=== PATIENT | female | born 1950 | race Caucasian/White ===

== ENCOUNTER 2021-08-06 11:37 | Inpatient (IN) | payer MEDICARE ==
[~2021-08-06] VITALS: Ht 170.2 cm; Wt 49.9 kg
[2021-08-06 13:20] LABS: BASOPHILS ABSOLUTE AUTO 0.05 K/mm3 (0.00-0.23); BASOPHILS PERCENT AUTO 0 % (0-2); EOSINOPHILS ABSOLUTE AUTO 0.02 K/mm3 (0.00-0.68); EOSINOPHILS PERCENT AUTO 0 % (0-6); Hematocrit 45.6 % (33.0-51.0); Hemoglobin 15.1 g/dL (11.5-16.0); IMMATURE GRAN ABSOLUTE AUTO 0.06 K/mm3 (0.00-0.10); IMMATURE GRAN PERCENT AUTO 0 % (0-1); LYMPHOCYTES ABSOLUTE AUTO 1.11 K/mm3 (0.84-5.20); LYMPHOCYTES PERCENT AUTO 8 % (21-46); MONOCYTES ABSOLUTE AUTO 1.01 K/mm3 (0.16-1.47); MONOCYTES PERCENT AUTO 7 % (4-13); Mean Corpuscular HGB 32.8 pg (26.0-34.0); Mean Corpuscular HGB Conc 33.1 g/dL (31.5-36.5); Mean Corpuscular Volume 99 fL (80-100); Mean Platelet Volume 9.6 fL (9.1-12.4); NEUTROPHILS ABSOLUTE AUTO 11.99 K/mm3 (1.96-9.15); NEUTROPHILS PERCENT AUTO 84 % (41-73); Platelet Count 313 K/mm3 (150-400); RDW Coefficient Variation 12.1 % (11.7-14.2); RDW Standard Deviation 43.7 fL (35.1-46.3); Red Blood Cell Count 4.61 M/mm3 (3.80-5.20); White Blood Cell Count 14.24 K/mm3 (4.00-11.30)
[2021-08-06 13:47] LABS: Alanine Aminotransfer (ALT/SGP 26 U/L (12-78); Albumin, Blood 3.2 g/dL (3.4-5.0); Albumin/Globulin Ratio 0.6 (0.8-1.8); Alk Phos 170 U/L (50-136); Anion Gap 7 mmol/L (6-16); Aspartate Aminotrans (AST/SGOT 25 U/L (12-37); Bilirubin, Total 0.4 mg/dL (0.1-1.0); Blood Urea Nitrogen 15 mg/dL (8-24); Bun/Creatinine Ratio 23.9 (12.0-20.0); CO2, Blood 28 mmol/L (21-32); Calcium, Blood 9.8 mg/dL (8.5-10.1); Chloride, Blood 101 mmol/L (98-108); Creatinine, Blood 0.63 mg/dL (0.40-1.00); Glomerular Filtration Rate >60 (60-); Glucose, Blood 112 mg/dL (70-99); Potassium, Blood 3.9 mmol/L (3.5-5.5); Sodium, Blood 136 mmol/L (136-145); Total Protein, Blood 8.2 g/dL (6.4-8.2)
[2021-08-07 05:13] LABS: BASOPHILS ABSOLUTE AUTO 0.04 K/mm3 (0.00-0.23); BASOPHILS PERCENT AUTO 0 % (0-2); EOSINOPHILS ABSOLUTE AUTO 0.01 K/mm3 (0.00-0.68); EOSINOPHILS PERCENT AUTO 0 % (0-6); Hematocrit 39.4 % (33.0-51.0); IMMATURE GRAN ABSOLUTE AUTO 0.06 K/mm3 (0.00-0.10); IMMATURE GRAN PERCENT AUTO 0 % (0-1); LYMPHOCYTES ABSOLUTE AUTO 1.23 K/mm3 (0.84-5.20); LYMPHOCYTES PERCENT AUTO 9 % (21-46); MONOCYTES ABSOLUTE AUTO 0.78 K/mm3 (0.16-1.47); MONOCYTES PERCENT AUTO 6 % (4-13); Mean Corpuscular HGB 32.5 pg (26.0-34.0); Mean Corpuscular Volume 99 fL (80-100); Mean Platelet Volume 9.5 fL (9.1-12.4); NEUTROPHILS ABSOLUTE AUTO 11.99 K/mm3 (1.96-9.15); NEUTROPHILS PERCENT AUTO 85 % (41-73); Platelet Count 263 K/mm3 (150-400); RDW Coefficient Variation 11.9 % (11.7-14.2); RDW Standard Deviation 43.3 fL (35.1-46.3); White Blood Cell Count 14.11 K/mm3 (4.00-11.30)
--- NOTE | 2021-08-07 05:38 | NUR ---
ADMISSION SUMMARY RECEIVED FROM ED ON STRETCHER, A&OX4. PT IS ON RA. STAND BY ASSIST. PT HAS A SWELLING IN NECK. IV ANTIBIOTICS ADMINISTERED PER EMAR. PT C/O BACK PAIN, PRN PAIN MED ADMINISTERED X2 WITH GOOD EFFECTS. PT HAD ELEVATED BP, APRESOLINE 10MG IV ADMINISTERED WITH GOOD EFFECTS. ADLS PROVIDED. SAFETY MEASURES IN PLACE. WILL CONTINUE TO MONITOR.
[2021-08-07 05:41] LABS: Alanine Aminotransfer (ALT/SGP 24 U/L (12-78); Albumin, Blood 2.6 g/dL (3.4-5.0); Albumin/Globulin Ratio 0.6 (0.8-1.8); Alk Phos 151 U/L (50-136); Anion Gap 9 mmol/L (6-16); Aspartate Aminotrans (AST/SGOT 23 U/L (12-37); Bilirubin, Total 0.3 mg/dL (0.1-1.0); Blood Urea Nitrogen 16 mg/dL (8-24); Bun/Creatinine Ratio 28.1 (12.0-20.0); CO2, Blood 26 mmol/L (21-32); Calcium, Blood 8.9 mg/dL (8.5-10.1); Chloride, Blood 102 mmol/L (98-108); Creatinine, Blood 0.57 mg/dL (0.40-1.00); Globulin, Blood 4.2 g/dL (2.2-4.0); Glomerular Filtration Rate >60 (60-); Glucose, Blood 103 mg/dL (70-99); Potassium, Blood 3.7 mmol/L (3.5-5.5); Sodium, Blood 137 mmol/L (136-145); Total Protein, Blood 6.8 g/dL (6.4-8.2)
--- NOTE | 2021-08-07 18:33 | NUR ---
Alert and oriented x 3, c/o submandibular pain 8/10 , neck pain and back pain all 8/10, oxycodone was given and was effective. Swelling noted left submandibular jaw and also complained of difficulty swallowing.Pain was managed with oxycodone and tylenol . C/O Migraine , tylenol and advil was given and it was effective. Continue on Unasyn IV for left submandibular abscess. One person assist with ADLS. Left submandibular was redrained this afternoon, patient tolerated it , fentayl 100 mcg IV was given for pain management and it was effective. Continue to monitor.
--- NOTE | 2021-08-08 04:39 | NUR ---
END OF SHIFT SUMMARY: Pt A&Ox4. No acute events overnight. Some pain in the jaw area, medicated per eMAR. Pt is pleasant and follows direction. Able to voice needs, call light within reach. Pt independednt in room. Bed in lowest position.
[2021-08-08 04:43] LABS: BASOPHILS ABSOLUTE AUTO 0.01 K/mm3 (0.00-0.23); BASOPHILS PERCENT AUTO 0 % (0-2); EOSINOPHILS PERCENT AUTO 0 % (0-6); Hemoglobin 12.9 g/dL (11.5-16.0); IMMATURE GRAN ABSOLUTE AUTO 0.08 K/mm3 (0.00-0.10); IMMATURE GRAN PERCENT AUTO 1 % (0-1); LYMPHOCYTES ABSOLUTE AUTO 0.63 K/mm3 (0.84-5.20); LYMPHOCYTES PERCENT AUTO 6 % (21-46); MONOCYTES ABSOLUTE AUTO 0.21 K/mm3 (0.16-1.47); MONOCYTES PERCENT AUTO 2 % (4-13); Mean Corpuscular HGB 33.1 pg (26.0-34.0); Mean Corpuscular HGB Conc 33.9 g/dL (31.5-36.5); Mean Corpuscular Volume 97 fL (80-100); Mean Platelet Volume 9.6 fL (9.1-12.4); NEUTROPHILS ABSOLUTE AUTO 10.25 K/mm3 (1.96-9.15); NEUTROPHILS PERCENT AUTO 92 % (41-73); Platelet Count 264 K/mm3 (150-400); RDW Coefficient Variation 12.2 % (11.7-14.2); RDW Standard Deviation 43.6 fL (35.1-46.3); White Blood Cell Count 11.18 K/mm3 (4.00-11.30)
--- NOTE | 2021-08-08 18:33 | NUR ---
Alert and oriented x3 c/o left jaw /submandibular pain 06/29 , pain was managed with dilaudid,tylenol and norco,it was effective. Left jaw was drained this morning by Dr Guzman, pateint tolerated and continue to express pain. On regular diet. Continue on Unasyn , no adverse effects noted. Call light within reach and bed in low position. continue to monitor .
[2021-08-09 05:06] LABS: BASOPHILS ABSOLUTE AUTO 0.01 K/mm3 (0.00-0.23); BASOPHILS PERCENT AUTO 0 % (0-2); EOSINOPHILS PERCENT AUTO 0 % (0-6); Hemoglobin 12.6 g/dL (11.5-16.0); IMMATURE GRAN ABSOLUTE AUTO 0.12 K/mm3 (0.00-0.10); IMMATURE GRAN PERCENT AUTO 1 % (0-1); LYMPHOCYTES ABSOLUTE AUTO 0.81 K/mm3 (0.84-5.20); LYMPHOCYTES PERCENT AUTO 7 % (21-46); MONOCYTES ABSOLUTE AUTO 0.54 K/mm3 (0.16-1.47); MONOCYTES PERCENT AUTO 5 % (4-13); Mean Corpuscular HGB 32.6 pg (26.0-34.0); Mean Corpuscular HGB Conc 33.2 g/dL (31.5-36.5); Mean Corpuscular Volume 98 fL (80-100); Mean Platelet Volume 9.6 fL (9.1-12.4); NEUTROPHILS ABSOLUTE AUTO 10.57 K/mm3 (1.96-9.15); NEUTROPHILS PERCENT AUTO 88 % (41-73); Platelet Count 279 K/mm3 (150-400); RDW Coefficient Variation 12.1 % (11.7-14.2); RDW Standard Deviation 43.7 fL (35.1-46.3); Red Blood Cell Count 3.87 M/mm3 (3.80-5.20); White Blood Cell Count 12.05 K/mm3 (4.00-11.30)
[2021-08-09 05:39] LABS: Anion Gap 5 mmol/L (6-16); Blood Urea Nitrogen 36 mg/dL (8-24); Bun/Creatinine Ratio 57.8 (12.0-20.0); CO2, Blood 26 mmol/L (21-32); Calcium, Blood 9.1 mg/dL (8.5-10.1); Chloride, Blood 108 mmol/L (98-108); Creatinine, Blood 0.62 mg/dL (0.40-1.00); Glomerular Filtration Rate >60 (60-); Glucose, Blood 166 mg/dL (70-99); Potassium, Blood 3.9 mmol/L (3.5-5.5); Sodium, Blood 139 mmol/L (136-145)
--- NOTE | 2021-08-09 06:06 | NUR ---
SHIFT SUMMARY PATIENT ALERT AND ORIENTED. MEDICATED PER EMAR FOR PAIN. NO COMPLAINTS OF SHORTNESS OF BREATH. NO ACUTE ISSUES NOTED OVERNIGHT. CALL LIGHT WITHIN REACH. REPORT GIVEN TO ONCOMING RN.
--- NOTE | 2021-08-09 18:00 | NUR ---
Alert and oriented x3. c/o left jaw pain and pain was managed with dilaudid 1 mg , tylenol 1000 mg , it was effective.No respiratory distress noted. Vital signs are stable. Ambulate to bathroom with SBA. No changes in LOC. call light within reach. Continue to monitor.
[2021-08-10 05:21] LABS: BASOPHILS ABSOLUTE AUTO 0.03 K/mm3 (0.00-0.23); BASOPHILS PERCENT AUTO 0 % (0-2); EOSINOPHILS PERCENT AUTO 0 % (0-6); Hematocrit 42.4 % (33.0-51.0); Hemoglobin 14.2 g/dL (11.5-16.0); IMMATURE GRAN ABSOLUTE AUTO 0.23 K/mm3 (0.00-0.10); IMMATURE GRAN PERCENT AUTO 2 % (0-1); LYMPHOCYTES ABSOLUTE AUTO 1.26 K/mm3 (0.84-5.20); LYMPHOCYTES PERCENT AUTO 10 % (21-46); MONOCYTES ABSOLUTE AUTO 0.53 K/mm3 (0.16-1.47); MONOCYTES PERCENT AUTO 4 % (4-13); Mean Corpuscular HGB 32.7 pg (26.0-34.0); Mean Corpuscular HGB Conc 33.5 g/dL (31.5-36.5); Mean Corpuscular Volume 98 fL (80-100); Mean Platelet Volume 9.5 fL (9.1-12.4); NEUTROPHILS ABSOLUTE AUTO 10.63 K/mm3 (1.96-9.15); NEUTROPHILS PERCENT AUTO 84 % (41-73); Platelet Count 347 K/mm3 (150-400); RDW Coefficient Variation 11.9 % (11.7-14.2); Red Blood Cell Count 4.34 M/mm3 (3.80-5.20); White Blood Cell Count 12.68 K/mm3 (4.00-11.30)
[2021-08-10 05:50] LABS: Anion Gap 5 mmol/L (6-16); Blood Urea Nitrogen 34 mg/dL (8-24); Bun/Creatinine Ratio 59.5 (12.0-20.0); CO2, Blood 28 mmol/L (21-32); Calcium, Blood 9.4 mg/dL (8.5-10.1); Chloride, Blood 107 mmol/L (98-108); Creatinine, Blood 0.57 mg/dL (0.40-1.00); Glomerular Filtration Rate >60 (60-); Glucose, Blood 127 mg/dL (70-99); Potassium, Blood 3.8 mmol/L (3.5-5.5); Sodium, Blood 140 mmol/L (136-145)
--- NOTE | 2021-08-10 11:23 | NUR ---
Patient tells me that she is the DC process. Son, Macario is bedside. I provide a calming presence and a blessing. Patient responds ell and voices appreciation for the visit.
[2021-08-10] MEDS ORDERED: ALBU90OI INH (13:05)
[2021-08-10] MEDS ORDERED: CEFD300 PO (13:06)
[2021-08-10] MEDS ORDERED: GABA300 PO (13:06)
[2021-08-10] MEDS ORDERED: Norco 10-325 T1 EACH PO (13:06)
[2021-08-10] MEDS ORDERED: PANT20 PO (13:07)
[2021-08-10] MEDS ORDERED: ZOLP10 PO (13:08)
[2021-08-10] MEDS ORDERED: Imitrex100 MG PO (13:08)
--- NOTE | 2021-08-10 14:23 | NUR ---
Alert and oriented x3 , continue with to manage pain with Dilaudi , tylenol and norco, it was effective. vital signs are stable. Left jaw swelling has significantly improved. On regular diet. Ambulate to bahroom independently . Continue on ABO therapy for left jaw swelling, no adverse effects noted. Patient was discharged home at 1.30 pm and Discharged instruction was given , patient demonstrated understanding. she left with her son in a stable condition.
== END 2021-08-10 13:34 | disposition home or self-care (01) | DRG 159 ==
LOC: ER 11:37 → MEDS 16:54
PROVIDERS: Emergency Medicine; Family Medicine; ADMIT Hospitalist
PROC: 0J913ZZ Drainage of Face Subcutaneous Tissue and Fascia, Percutaneous Approach (ICD-10-PCS; principal; 2021-08-06)
DX: K12.2 Cellulitis and abscess of mouth (principal); K11.23 Chronic sialoadenitis; F41.9 Anxiety disorder, unspecified; E78.5 Hyperlipidemia, unspecified; J44.9 Chronic obstructive pulmonary disease, unspecified; G47.00 Insomnia, unspecified; Z90.711 Acquired absence of uterus with remaining cervical stump; Z90.49 Acquired absence of other specified parts of digestive tract; Z66 Do not resuscitate; K21.9 Gastro-esophageal reflux disease without esophagitis; G89.29 Other chronic pain; Z86.73 Personal history of transient ischemic attack (TIA), and cerebral infarction without residual deficits; M81.0 Age-related osteoporosis without current pathological fracture; Z79.899 Other long term (current) drug therapy; G43.909 Migraine, unspecified, not intractable, without status migrainosus
CPT/HCPCS: 36415; 70491; 80048; 80053; 85025; 87070; 87075; 87077; 87186; 87205; 96365; 96366; 96372; 96375; 96376; 99284-25; A9270; C9113; G0378; J0295; J1100; J1170; J1885; J3010; J3030; J7050; J7512; Q9967

== ENCOUNTER 2022-07-29 08:24 | Day surgery (SDC) | payer MEDICARE, OTHER ==
[~2022-07-29] VITALS: Ht 170.2 cm; Wt 54.7 kg
[~2022-07-29 08:24] MED LIST: ALBU90OI INH; AMOX500 PO; CEFD300 PO; GABA300 PO; Imitrex100 MG PO; Norco 10-325 T1 EACH PO; PANT20 PO; PERCOCET 10-321 EA10 PO; ZOLP10 PO
[2022-07-29] MEDS ORDERED: Carisoprodol350 MG (09:02)
--- NOTE | 2022-07-29 10:04 | NUR ---
07/29/22 1004 Liam Enriquez LIDOCAINE 2% 1:100,000 DILUTED AND VERIFY BY RN PER ORDER WITH NACL 1:1 TO MAKE LIDO 1% 1:200,000 INJECTED AT OPSITE BY DR. PANDEY 4 ML INJECTED.
--- NOTE | 2022-07-29 14:47 | NUR ---
07/29/22 6476 Gandhi Kumar PATIENT HAD PROBLEMS MAINTAINING O2 SATURATION IN PACU. SHE WAS PLACED ON O2 IN PACU AND SUPPLEMENTAL O2 IN STEP DOWN. O2 SATS WERE SUSTAIN ING 80'S WHEN ON ROOM AIR. PATIENT REPORTED 9/10 PAIN AND ASKED FOR IV PAIN MEDICATION. PAIN MEDICATION COULD NOT BE ADMINISTERED, DUE TO PATIENT'S LOW 02 SATS, PER DR. HUBER. SHE WAS GIVEN AN INCENTIVE SPIROMOMETER TO USE. SHE DEMONSTRATED ABILITY TO USE BUT WAS RELUCTANT TO USE IT WHEN REQUESTED. SON WAS IN PT ROOM WHEN SHE FIRST CAME INTO SDU. HE WAS THERE WHEN REQUEST FOR I.S.- HE WITNESSED HER NON-COMPLIANCE TO DEVICE WELL. DUONEB WAS ADMINISTERED ALONG WITH SUPPLEMENTAL 02, PER DR. HUBER'S ORDERS. PATIENT TRIALS OFF O2, CONTINUED TO DESATURATION INTO THE 80'S WHEN RETURNED TO ROOM AIR. DR. THOMAS LATER EXAMINED THE PATIENT AND AGREED TO IV FENTANYL ADMINISTRATION, WHILE PATIENT WAS ON SUPPLEMENTAL O2. DR. THOMAS HAD OFFERED TO HAVE PT ADMITTED TO THE HOSPITAL FOR CARE/TREATMENT, HOWEVER, PT REFUSED. SON CONCERED OF PT PAIN. PT HAD ADMITTED THAT SHE HAS CHRONIC PAIN AND IS TAKING PERCOCET QID PRN. SINCE PT REFUSED ADMITTANCE TO HOSPITAL, DR. THOMAS SET UP TO HAVE O2 FOR HOME USE PRIOR TO DISCHARGE. PATIENT RECIEVED (3) 25MCG DOSES OF IV FENTANYL WHILE WAITING FOR [facility] TO ARRIVE WITH HOME O2 EQUIPMENT. PATIENT REPORTED HER PAIN TOLERABLE FOLLOWING INITIAL THREE DOSES OF FENTANYL. SHE WAS GIVEN A FOURTH 25MCG DOSE OF FENTANYL PRIOR TO DISCHARGE AND AGAIN REPORTED HER PAIN TOLERABLE FOLLOWING THIS DOSE. O2 WAS SWITCHED FROM FACE TENT TO NASAL CANUALA FOLLOWING EXAMINATION BY DR. THOMAS AND FREQUENTLY TITRATED TO MAINTAIN O2 SATURATION ABOVE 92%. PATIENT DISCHARGED ON 3L O2. SON WAS IN ROOM DURING DISCHARGE INSTRUCTIONS. HE HAD MANY QUESTIONS THAT WERE ANSWERED TO HIS SATISFACTION. HE HAD QUESTIONS FOR [facility] RETAIL LOAN ORIGINATOR WELL AND THOSE QUESTIONS WERE ANSWERED TO HIS SATISFACTION. [facility] STATES THAT THEY WOULD DELIVER AN O2 CONCENTRATOR TO THEIR HOME TODAY. ON DISCHARGE, PT AND SON STATED THAT THEY WERE VERY PLEASED WITH THEIR CARE. SON WAS VERY APPRCIATIVE OF THE CARE HIS MOM RECEIVED. SEVERAL TIMES PT AND SON REMINDED OF THE DANGERS OF SMOKING WHILE ON OXYGEN.
== END 2022-07-29 14:05 | disposition home or self-care (01) ==
LOC: ORSCSDS 08:24
PROVIDERS: Otolaryngology
PROC: 0JB50ZX Excision of Left Neck Subcutaneous Tissue and Fascia, Open Approach, Diagnostic (ICD-10-PCS; principal; 2022-07-29 09:30)
DX: A42.9 Actinomycosis, unspecified (principal); Z79.899 Other long term (current) drug therapy; Z86.73 Personal history of transient ischemic attack (TIA), and cerebral infarction without residual deficits; J44.9 Chronic obstructive pulmonary disease, unspecified; E03.9 Hypothyroidism, unspecified; F17.210 Nicotine dependence, cigarettes, uncomplicated
CPT/HCPCS: 87071; 87075; 87077; 87186; 87205; 88305; J1100; J1885; J2250; J2370; J2405; J2704; J2795; J3010; J7030; J7120

== ENCOUNTER 2022-09-09 01:56 | Day surgery (SDC) | payer MEDICARE, OTHER ==
[~2022-09-09 01:56] MED LIST changes: +Carisoprodol350 MG
[2022-09-10] MEDS ORDERED: Simvastatin20 MG PO (10:37)
[2022-09-10] MEDS ORDERED: NARCAN4 M1 (11:51)
== END 2022-09-09 23:33 | disposition home or self-care (01) ==
LOC: WOUND 01:56
DX: L98.499 Non-pressure chronic ulcer of skin of other sites with unspecified severity (principal); K12.2 Cellulitis and abscess of mouth; G89.4 Chronic pain syndrome; K08.109 Complete loss of teeth, unspecified cause, unspecified class; F17.208 Nicotine dependence, unspecified, with other nicotine-induced disorders; J44.9 Chronic obstructive pulmonary disease, unspecified; M06.9 Rheumatoid arthritis, unspecified
CPT/HCPCS: 99406; A9270; G0463

== ENCOUNTER 2023-09-10 18:26 | Emergency (ER) | payer MEDICARE, OTHER ==
[~2023-09-10] VITALS: Ht 170.2 cm; Wt 54.4 kg
[~2023-09-10 18:26] MED LIST changes: +NARCAN4 M1; +Simvastatin20 MG PO
[2023-09-10 18:36] VITALS: BP 100/66
== END 2023-09-10 21:00 | disposition left against medical advice (07) ==
LOC: ER 18:26
DX: Z53.21 Procedure and treatment not carried out due to patient leaving prior to being seen by health care provider (principal)
CPT/HCPCS: 70450; 72125

== ENCOUNTER → 2023-11-30 | Outpatient (CLI) | payer MEDICARE, OTHER | LOC: LAB SHORT 14:00 → LAB 14:00 | DX: R84.5 Abnormal microbiological findings in specimens from respiratory organs and thorax (principal); R09.3 Abnormal sputum | CPT/HCPCS: 87070; 87205 ==

== ENCOUNTER → 2024-12-21 | Outpatient (CLI) | payer MEDICARE, OTHER ==
[2024-12-21 11:41] LABS: BASOPHILS ABSOLUTE AUTO 0.03 K/mm3 (0.00-0.23); BASOPHILS PERCENT AUTO 0 % (0-2); EOSINOPHILS PERCENT AUTO 0 % (0-6); Hematocrit 42.9 % (33.0-51.0); Hemoglobin 14.2 g/dL (11.5-16.0); IMMATURE GRAN PERCENT AUTO 2 % (0-1); LYMPHOCYTES ABSOLUTE AUTO 0.56 K/mm3 (0.84-5.20); LYMPHOCYTES PERCENT AUTO 5 % (21-46); MONOCYTES ABSOLUTE AUTO 0.36 K/mm3 (0.16-1.47); MONOCYTES PERCENT AUTO 3 % (4-13); Mean Corpuscular HGB 33.3 pg (26.0-34.0); Mean Corpuscular HGB Conc 33.1 g/dL (31.5-36.5); Mean Corpuscular Volume 101 fL (80-100); Mean Platelet Volume 9.1 fL (9.1-12.4); NEUTROPHILS ABSOLUTE AUTO 10.87 K/mm3 (1.96-9.15); NEUTROPHILS PERCENT AUTO 90 % (41-73); Platelet Count 208 K/mm3 (150-400); RDW Coefficient Variation 12.9 % (11.7-14.2); Red Blood Cell Count 4.27 M/mm3 (3.80-5.20); White Blood Cell Count 12.02 K/mm3 (4.00-11.30)
[2024-12-21 11:54] LABS: Albumin, Blood 3.8 g/dL (3.4-5.0); Bilirubin, Total 0.4 mg/dL (0.1-1.0); Bun/Creatinine Ratio 29.2 (12.0-20.0); Calcium, Blood 8.9 mg/dL (8.5-10.1); Creatinine, Blood 0.72 mg/dL (0.40-1.00); Globulin, Blood 3.9 g/dL (2.2-4.0); Potassium, Blood 4.4 mmol/L (3.5-5.5); Total Protein, Blood 7.7 g/dL (6.4-8.2)
== END ==
LOC: LAB SHORT 11:35 → LAB 11:35
PROVIDERS: Family Medicine
DX: R19.7 Diarrhea, unspecified (principal); R11.2 Nausea with vomiting, unspecified
CPT/HCPCS: 80053; 85025

== ENCOUNTER → 2025-02-03 | Outpatient (CLI) | payer MEDICARE, OTHER ==
[2025-02-10 18:53] LABS: 6-ACETYLMORPHINE, URN, QUANT <10 ng/mL; CODEINE, URN, QUANT <20 ng/mL; HYDROCODONE, URN, QUANT <20 ng/mL; HYDROMORPHONE, URN, QUANT <20 ng/mL; MORPHINE, URN, QUANT <20 ng/mL; NORHYDROCODONE, URN, QUANT <20 ng/mL; NOROXYCODONE, URN, QUANT >4000 ng/mL; NOROXYMORPHONE, URN, QUANT 581 ng/mL; OXYCODONE, URN, QUANT 2889 ng/mL; OXYMORPHONE, URN, QUANT 38 ng/mL
== END | disposition home or self-care (01) ==
LOC: LAB 16:45 → LAB SHORT 16:45
PROVIDERS: Physician Assistant
DX: Z79.891 Long term (current) use of opiate analgesic (principal)
CPT/HCPCS: G0480

== ENCOUNTER 2025-06-22 10:11 | Inpatient (IN) | payer MEDICARE, OTHER ==
[~2025-06-22] VITALS: Ht 157.5 cm; Wt 56.0 kg
[~2025-06-22 10:11] MED LIST changes: -Carisoprodol350 MG; +Carisoprodol350 MG PO
[2025-06-22] MEDS ORDERED: Ipratropium/Albuterol SulF 2.5-0.5MG/3 ML Amp INH ONE (10:20)
[2025-06-22 10:24] LABS: pH Blood Venous 7.38 (7.34-7.37)
[2025-06-22 10:34] LABS: BASOPHILS ABSOLUTE AUTO 0.06 K/mm3 (0.00-0.23); BASOPHILS PERCENT AUTO 1 % (0-2); EOSINOPHILS ABSOLUTE AUTO 0.17 K/mm3 (0.00-0.68); EOSINOPHILS PERCENT AUTO 2 % (0-6); Hematocrit 41.6 % (33.0-51.0); Hemoglobin 13.5 g/dL (11.5-16.0); IMMATURE GRAN ABSOLUTE AUTO 0.03 K/mm3 (0.00-0.10); IMMATURE GRAN PERCENT AUTO 0 % (0-1); LYMPHOCYTES ABSOLUTE AUTO 1.53 K/mm3 (0.84-5.20); LYMPHOCYTES PERCENT AUTO 18 % (21-46); MONOCYTES ABSOLUTE AUTO 0.81 K/mm3 (0.16-1.47); MONOCYTES PERCENT AUTO 9 % (4-13); Mean Corpuscular HGB Conc 32.5 g/dL (31.5-36.5); Mean Corpuscular Volume 104 fL (80-100); NEUTROPHILS ABSOLUTE AUTO 6.10 K/mm3 (1.96-9.15); NEUTROPHILS PERCENT AUTO 70 % (41-73); NRBC ABSOLUTE 0.00 K/mm3 (0.00-0.02); NRBC Auto 0.0 /100 WBC (0.0-0.2); Platelet Count 206 K/mm3 (150-400); RDW Coefficient Variation 12.3 % (11.7-14.2); RDW Standard Deviation 47.2 fL (35.1-46.3)
[2025-06-22 10:55] LABS: Alanine Aminotransfer (ALT/SGP 42.0 U/L (12-78); Albumin, Blood 3.6 g/dL (3.4-5.0); Albumin/Globulin Ratio 1.2 (0.8-1.8); Anion Gap 5.0 mmol/L (3-11); Aspartate Aminotrans (AST/SGOT 34.0 U/L (12-37); Bilirubin, Total 0.4 mg/dL (0.1-1.0); Blood Urea Nitrogen 24.0 mg/dL (8-24); CO2, Blood 34.0 mmol/L (21-32); Calcium, Blood 9.0 mg/dL (8.5-10.1); Chloride, Blood 108.0 mmol/L (98-108); Creatinine, Blood 0.6 mg/dL (0.40-1.00); Globulin, Blood 2.9 g/dL (2.2-4.0); Glucose, Blood 101.0 mg/dL (70-99); Potassium, Blood 4.5 mmol/L (3.5-5.5); Sodium, Blood 142.0 mmol/L (136-145); Total Protein, Blood 6.5 g/dL (6.4-8.2)
[2025-06-22 11:33] LABS: Source, Urine Clean Catch
[2025-06-22 11:42] LABS: Bilirubin, Urine Neg (Neg); Color, Urine Yellow (P-Yellow); Glucose Qualitative, Urine Neg (Neg); Ketones, Urine Neg (Neg); Leukocyte Esterase, Urine 1+ (Neg); Protein, Urine 1+ (Neg); Specific Gravity, Urine 1.020 (1.003-1.022); Urobilinogen, Urine NORM (Normal)
[2025-06-22 11:50] LABS: Red Blood Cells, Urine 0-2 /hpf (0-2)
[2025-06-22 12:00] LABS: U Amphetamine Screen Not Detected; U Barbituate Screen Not Detected; U Benzodiazapine Screen Not Detected; U Buprenorphine Screen Not Detected; U Cannabinoids Screen Not Detected; U Cocaine Screen Not Detected; U Methadone Screen Not Detected; U Methamphetamine Screen Not Detected; U Opiates Screen Not Detected; U Oxycodone Screen DETECTED; U Phencyclidine Screen Not Detected
[2025-06-22] MEDS ORDERED: Morphine Sulfate 4 MG/1 ML Injection IV ONE ×2 (12:10→13:40)
[2025-06-22] MEDS ORDERED: CefTRIAXone Sodium 1,000 MG in NS 100 ML IV ONE (13:30)
[2025-06-22] MEDS ORDERED: OxyCODONE 5 mg/Acetamin 325 mg TABLET PO PRN (16:10)
[2025-06-22] MEDS ORDERED: Ipratropium/Albuterol SulF 2.5-0.5MG/3 ML Amp INH SCH (16:15)
[2025-06-22] MEDS ORDERED: Naloxone HCl 0.4MG / ML 1ML Vial IV PRN (16:15)
[2025-06-22] MEDS ORDERED: Albuterol 2.5 MG/3 ML VIAL INH PRN (16:20)
[2025-06-22] MEDS ORDERED: NS 1,000 ML IV SCH (16:20)
[2025-06-22] MEDS ORDERED: [UNRECOGNIZED DRUG - OTHER] INH SCH (16:40)
[2025-06-22 18:51] VITALS: BP 120/73
--- NOTE | 2025-06-22 19:07 | NUR ---
ADMIT NOTE- PT ADMITTED TO MED FLOOR THROUGH THE ED. PT CAME IN WITH AMS AND SOB. PT HAS CHRONIC COPD AND CHRONIC PAIN BEING Tx WITH OPIATES. PT HAS NOT HAD HER DOSES TODAY FOR PAIN MEDS. NOTABLE URINARY RETENTION OVER 1000ML ON CT AND BLADDER SCAN. SHERWOOD PLACED IN THE ED FOR ACUTE RETENTION. PT ARRIVED ON MED FLOOR ALERT AND ORIENTED TO SELF. NS STARTED. WEIGHT TAKEN VIA BED UPON ARRIVAL. 2RN SKIN CHECK COMPLETED, PT HAS MULTIPLE BRUISES AND SKIN TEARS T/O WELL SMALL SCABS. SCDS IN P[LACE ON THE PT BLE PER MD ORDER. TOES COLD ON ARRIVAL TO MEDICAL FLOOR. WHEN REPOSITIONING THE PT SHE GRABBED FOR THE SHERWOOD CATH. STAFF STOPPED HER FROM PULLING IT ON ACCIDENT. SHE IS GREATLY CONFUSED, WHEN ASKED WHERE SHE IS SHE STATES "[facility]" WHEN ASKED [place] THAT [place] IN [place]ATED [place] SHE IS USING A LOT OF COLORFUL LANGUAGE ON ARRIVAL AND "SAYS IM SORRY" AFTER EACH ONE.
[2025-06-22 19:47] VITALS: BP 108/71
[2025-06-22] MEDS ORDERED: Lactobacil 2-S.Thermo-Bifido 1 1 Cap PO SCH (21:00)
[2025-06-23 04:36] VITALS: BP 125/70
--- NOTE | 2025-06-23 04:57 | NUR ---
SUMMARY: PT AOX1, TEARFUL AND ANXIOUS OVERNIGHT. EMOTIONALLY LABILE. 3L NC, SHERWOOD IN PLACE DRAINING APPROPRIATELY, AND PT ABLE TO TURN SELF IN BED. PT STATES SHE IS HAVING PAIN BUT REFUSED THE PRN PAIN MEDICATION WHEN BROUGHT TO ROOM. PT SLIGHTLY PARANOID. FLUIDS INFUSING. IV REMOVED AND NEW ONE PLACED DUE TO REDNESS AND LEAKING. CALL LIGHT WITHIN REACH AND BED ALARM ON.
[2025-06-23 07:41] VITALS: BP 118/68
[2025-06-23 10:21] LABS: BASOPHILS ABSOLUTE AUTO 0.05 K/mm3 (0.00-0.23); BASOPHILS PERCENT AUTO 1 % (0-2); EOSINOPHILS ABSOLUTE AUTO 0.13 K/mm3 (0.00-0.68); EOSINOPHILS PERCENT AUTO 2 % (0-6); Hematocrit 40.2 % (33.0-51.0); Hemoglobin 13.3 g/dL (11.5-16.0); IMMATURE GRAN ABSOLUTE AUTO 0.03 K/mm3 (0.00-0.10); IMMATURE GRAN PERCENT AUTO 0 % (0-1); LYMPHOCYTES ABSOLUTE AUTO 1.41 K/mm3 (0.84-5.20); LYMPHOCYTES PERCENT AUTO 20 % (21-46); MONOCYTES ABSOLUTE AUTO 0.58 K/mm3 (0.16-1.47); MONOCYTES PERCENT AUTO 8 % (4-13); Mean Corpuscular HGB Conc 33.1 g/dL (31.5-36.5); Mean Corpuscular Volume 103 fL (80-100); NEUTROPHILS ABSOLUTE AUTO 5.03 K/mm3 (1.96-9.15); NEUTROPHILS PERCENT AUTO 70 % (41-73); NRBC ABSOLUTE 0.00 K/mm3 (0.00-0.02); NRBC Auto 0.0 /100 WBC (0.0-0.2); Platelet Count 200 K/mm3 (150-400); RDW Coefficient Variation 12.2 % (11.7-14.2); RDW Standard Deviation 46.4 fL (35.1-46.3)
[2025-06-23 10:41] LABS: Alanine Aminotransfer (ALT/SGP 39.0 U/L (12-78); Albumin, Blood 3.4 g/dL (3.4-5.0); Albumin/Globulin Ratio 1.2 (0.8-1.8); Anion Gap 7.0 mmol/L (3-11); Aspartate Aminotrans (AST/SGOT 36.0 U/L (12-37); Bilirubin, Total 0.4 mg/dL (0.1-1.0); Blood Urea Nitrogen 19.0 mg/dL (8-24); CO2, Blood 31.0 mmol/L (21-32); Calcium, Blood 8.6 mg/dL (8.5-10.1); Chloride, Blood 108.0 mmol/L (98-108); Creatinine, Blood 0.47 mg/dL (0.40-1.00); Globulin, Blood 2.8 g/dL (2.2-4.0); Glucose, Blood 76.0 mg/dL (70-99); Potassium, Blood 3.4 mmol/L (3.5-5.5); Sodium, Blood 143.0 mmol/L (136-145); Total Protein, Blood 6.2 g/dL (6.4-8.2)
[2025-06-23] MEDS ORDERED: NS 1,000 ML IV SCH (13:00)
[2025-06-23] MEDS ORDERED: CefTRIAXone Sodium 1,000 MG in NS 100 ML IV SCH (14:49)
[2025-06-23 16:11] VITALS: BP 149/91
--- NOTE | 2025-06-23 16:19 | NUR ---
MET WITH PT AND SON AT BEDSIDE THIS AFTERNOON. EARLIER TODAY THE PATIENT VERBALIZED TAKING OFF THE "DNR" BRACELET, AND STATING SHE WANTED CPR. HOWEVER, THE PHYSICIAN ASKED THIS PC RN TO SPEAK WITH PT AND SON ABOUT IT. THE PATIENT REMAINS CONFUSED INTERMITTENTLY, BUT DID REFUSE WHEN BEDSIDE RN ATTEMPTED TO REMOVED DNR BRACELET. HER SON REPORTS NOTABLE INCREASE IN CONFUSION, WHICH IS WHAT PROMPTED HIM TO SEND PT TO THE HOSPITAL IN THE FIRST PLACE. PT NOW STATING SHE WANTS TO REMAIN DNR. PT'S CODE WILL REMAIN DNR AT THIS TIME.
--- NOTE | 2025-06-23 18:26 | NUR ---
SHIFT SUMMARY- PT ALERT. SHE IS NOT ORIENTED TO SELF OR LOCATION. SHE RANDOMLY SHOUTS OR SAYS WORDS THAT SEEMINGLY HAVE NO MEANING AND APPEAR TO BE OUT OF CONTEXT. "TRUE, TRUE, TRUE" OR "LIE, LIE, LIE" OR CURSE WORDS REPEATED THE SAME. THE PT BECAME LETHARGIC THIS EVENING AND WAS TACHY, DR NOTIFIED SHE ALSO HAD A LOW FEVER. PT PLACED ON TELE, IVF RUNNING AND IV ABX WERE GIVEN. PT WORDS ARE AGRESSIVE AND SHE IS INDICATING THE DISINTEREST IN MEDS, HOWEVER SHE WILL OFTEN TAKE THEM WITH THE RIGHT APPROACH AND PROMPTING. PT IS IN BED CALL LIGHT IN REACH NO S&S OF DISTRESS NOTED AT THIS TIME. WILL PASS ON TO NIGHT RN IN BEDSIDE REPORT.
[2025-06-23 19:48] VITALS: BP 156/76
[2025-06-24] VITALS (9 sets, daily range): BP systolic 119–165; BP diastolic 73–95
[2025-06-24 05:57] LABS: BASOPHILS ABSOLUTE AUTO 0.06 K/mm3 (0.00-0.23); BASOPHILS PERCENT AUTO 1 % (0-2); EOSINOPHILS ABSOLUTE AUTO 0.03 K/mm3 (0.00-0.68); EOSINOPHILS PERCENT AUTO 0 % (0-6); Hematocrit 43.0 % (33.0-51.0); Hemoglobin 14.4 g/dL (11.5-16.0); IMMATURE GRAN ABSOLUTE AUTO 0.06 K/mm3 (0.00-0.10); IMMATURE GRAN PERCENT AUTO 1 % (0-1); LYMPHOCYTES ABSOLUTE AUTO 0.97 K/mm3 (0.84-5.20); LYMPHOCYTES PERCENT AUTO 9 % (21-46); MONOCYTES ABSOLUTE AUTO 0.62 K/mm3 (0.16-1.47); MONOCYTES PERCENT AUTO 6 % (4-13); Mean Corpuscular HGB Conc 33.5 g/dL (31.5-36.5); Mean Corpuscular Volume 102 fL (80-100); NEUTROPHILS ABSOLUTE AUTO 8.98 K/mm3 (1.96-9.15); NEUTROPHILS PERCENT AUTO 84 % (41-73); NRBC ABSOLUTE 0.00 K/mm3 (0.00-0.02); NRBC Auto 0.0 /100 WBC (0.0-0.2); Platelet Count 231 K/mm3 (150-400); RDW Coefficient Variation 12.1 % (11.7-14.2); RDW Standard Deviation 45.2 fL (35.1-46.3)
--- NOTE | 2025-06-24 06:34 | NUR ---
SHIFT SUMMARY PT ALERT AND ORIENTED TIMES . PT ADMITTED FOR ACUTE METABOLIC ENCEPHALOPATHY. PT HAS NORMAL SALINE FLUIDS RUNNING AT 100/HR. PT TOOK MEDICATION WHOLE WITH WATER ONE AT A TIME. PT WAS TURNED Q2 FOR COMFORT AND SKIN BREAKDOWN. PT, AT TIMES APPEARS IN A CATATONIC STATE. EYES ARE WIDE OPEN AND STARING AT CORNER OF WALL AND SMILING. SHE DOES NOT RESPOND TO QUESTIONS AND EYES DO NOT TRACK SOUND. PUPILS WERE ALMOST NON REACTIVE WHEN POCKET LIGHT SHOWN IN EYES. PT VITALS WERE WNL. PT APPEARS TO BE RESTING COMFORTABLY. CALL LIGHT WITHIN REACH, RAILS TIMES 2, BED IN LOW POSITION.
[2025-06-24 06:35] LABS: Anion Gap 15.0 mmol/L (3-11); Blood Urea Nitrogen 26.0 mg/dL (8-24); CO2, Blood 21.0 mmol/L (21-32); Calcium, Blood 8.9 mg/dL (8.5-10.1); Chloride, Blood 108.0 mmol/L (98-108); Creatinine, Blood 0.44 mg/dL (0.40-1.00); Glucose, Blood 75.0 mg/dL (70-99); Potassium, Blood 3.9 mmol/L (3.5-5.5); Sodium, Blood 140.0 mmol/L (136-145)
--- NOTE | 2025-06-24 07:45 | NUR ---
RESEARCH CHEMICAL ENGINEER NOTE- ON AM VITALS THE PT WAS NOTED TO HAVE VEWS SCORE OF 5. HOSPICE SOCIAL WORKER NOTIFIED THIS RN. THIS RN WENT TO ASESS, RT AT THE BEDSIDE TO PROVIDE PT WITH BREATHING Tx. PT WAS UNRESPONSIVE ON ASSESSMENT WITH A NOTABLE LEFT GAZE, PT ARMS RIGID AND SHAKING BOARD STIFF FISTS CLENCHED, LEFT FIST TURNED IN RIGHT FIST TURNED OUT. RESP RATE 55 SHALLOW RESP NOTED O2 SATS 95% ON 3L VIA NC. RT AT THE BEDSIDE AND AGREED RESEARCH CHEMICAL ENGINEER CALL MADE. CRTS ARRIVED SHORTLY AFTER. PT WAS TAKEN TO DO A STAT HEAD CT, SHE RANDOMLY WAS LIFTING HER LEGS STRAIGHT UP OFF THE BED. PT UNRESPONSIVE AT THE START OF THE RAPID. SHE BECAME MINIMALLY RESPONSIVE OFF AND ON THROUGHT THE EVAL. SHE WOULD RESPOND WITH WORDS OR WORD SALAD. OR SHE WOULD START TRACKING PEOPLE WITH HER EYES, THEN SWITCH BACK TO A DOLL GAZE. SPOKE TO DR KING AT THE TIME OF THE RAPID SHE IS AWARE OF PT CONDITION AT THIS TIME. OT ORDER FOR IV ATIVAN GIVEN LATER, SEE EMAR FOR TIME. THIS SEEMED TO HELP FOR A VERY SHORT WHILE. CALLED AND SHE ORDERED IV DIAZEPAM. THIS SEEMED TO BE MORE EFFECTIVE THE PT BEGAN TO ACTUALLY MEANIGFULLY INTERACT WITH HER SON.
[2025-06-24 08:35] LABS: pH Blood Venous 7.37 (7.34-7.37)
[2025-06-24] MEDS ORDERED: LORazepam 2 MG/ML 1ML Injection IV ONE (08:50)
[2025-06-24] MEDS ORDERED: ELIQUIS5 M2 PO (09:40)
[2025-06-24] MEDS ORDERED: BREZTRI AEROS10.7 GM INH (09:41)
[2025-06-24] MEDS ORDERED: CYMBALTA60 M1 PO (09:43)
[2025-06-24] MEDS ORDERED: BACL10 PO (09:44)
[2025-06-24] MEDS ORDERED: DULO30 PO (09:45)
--- NOTE | 2025-06-24 09:49 | NUR ---
MED REC COMPLETED WITH PT SON. SON ASSUMED CARE OF PT MEDICATIONS 2 WEEKS AGO (APPROX) AND SOMA WAS REDUCED TO 1 TAB DAILY TO RATION THE REMAINING MEDS.
[2025-06-24] MEDS ORDERED: Diazepam 5 MG / ML 2ML SYR IV ONE (10:20)
[2025-06-24] MEDS ORDERED: Diazepam 5 MG / ML 2ML SYR IV PRN ×2 (12:15→21:00)
--- NOTE | 2025-06-24 14:49 | NUR ---
RECIEVED A CALL FROM TELE HR TACHY 8 BEAT RUN OF SVT. THIR RN WENT TO ASSESS. PT IN BED ROLLED TO TJHE LEFT GAZE LEFT, NOT RESPONDING TO THIS RN. ARMS STIFF AGAIN, HANDS CLENCHED. PT SATURATED WITH SWEAT, VS CHECKED RESP RATE 44 AND SHALLOW SATS 95%, TEMP 102.5, THIS RN AT THE BEDSIDE TO DO THE ASSESSMENT FOR 7 MINUTES. PT FINALLY BEGAN TO RESPOND, SHE FOLLOWED INSTRUCTIONS TO USE HER EYES TO LOOK AT THIS RN. VEWS SCORE 9. CALLED DR KING AND SPOKE TO HER. THE PT HAD RECIEVED IV DIAZEPAM 20 MIN PRIOR TO THE SVT RUN. IS PLACING ORDERS FOR FL TYLENOL, LACTIC AND BLOOD CULTURES.
[2025-06-24 15:53] LABS: Influenza A, PCR NEGATIVE (NEGATIVE); Influenza B, PCR NEGATIVE (NEGATIVE); Resp Syncytial Virus, PCR NEGATIVE (NEGATIVE); SARS-Cov-2 (COVID-19) PCR, MMC NEGATIVE (NEGATIVE)
[2025-06-24] MEDS ORDERED: Ketorolac Tromethamine 15mg Vial IV PRN (16:25)
[2025-06-24] MEDS ORDERED: Cefepime HCl 2,000 MG in NS 100 ML IV SCH (16:54)
[2025-06-24] MEDS ORDERED: MetroNIDAZOLE 500MG/NS 100 ml 100 ML IV SCH (16:56)
[2025-06-24] MEDS ORDERED: NS 250 ML IV PRN (18:10)
--- NOTE | 2025-06-24 19:15 | NUR ---
ASSUMPTION OF CARE PATIENT WAS RECENT TRANSFER FROM MEDICAL FLOOR TO PCU FOR ONGOING AMS AND ABNORMAL NEURO SX. RECEIVED REPORT FROM DAY SHIFT RN THAT HAS ONLY BEEN IN CARE FOR SHORT PERIOD OF TIME. PT IS LAYING SUPINE IN BED WITH HEAD TURNED TO RIGHT AND GAZING FORWARD. PT IS NON RESPONSIVE TO VERBAL AND PHYSCIAL STIMULI. NO OBVIOUS RESP DISTRESS. VSS. L WRIST IS POSTURING TOWARD HER BODY. PT NOTED TO HAVE OCCASIONAL SMALL TREMORS. REVIEWED RECENT TREATMENTS WITH DAYSHIFT NURSE. SHANTI RN TO CALL PROVIDER TO CLARIFY PLAN OF CARE.
--- NOTE | 2025-06-24 20:08 | NUR ---
SHIFT SUMMARY/TRANSFER NOTE- PT TRANSFERED TO PCU JUST PRIOR TO SHIFT CHANGE. IV ABX AND LR RUNNING AT THE TIME OF TRANSFER. PT STIFF AND RIGID AT THE TIME OF TRANSFER. REPORT COMPLETED WITH WOVEN LABEL DESIGNER ANGIE. PT WAS TRANSFERED WITH HER BED. PT IV WAS REDRESSED AT THE TIME OF TRANSFER THE PT HAD STARTED PROFUSELY SWEATING, PRIOR TO TRANSFER. PT NOT VERBALLY RESPONDING TO STAFF AT THE TIME OF TRANSFER. CALLED THE PT SON THIS EVENING AND SPOKE TO HIM ABOUT THE TRANSFER. HE ASKED QUESTIONS AND RECIEVED ANSWERS. HE HAS ALREADY MET WITH PALLIATIVE CARE RN EMMIE EARLIER, HE MAY SPEAK TO HER AGAIN ABOUT ADVANCED CARE PLANNING. HE STATES HE WILL BE IN TO SEE HER TOMORROW AM ON PCU16.
--- NOTE | 2025-06-24 20:11 | NUR ---
AT ~1925 ENTERED PT ROOM FOR ASSESSMENT. PT POSTURING, NOT RESPONSIVE TO PAINFUL/VERBAL STIMULI, SHAKING, GAZING RIGHT. IV VALIUM ADMINISTERED D/T SEIZURE ACTIVITY @ 1931. ABOUT 30 SECONDS POST ADMINISTRATION PT RECOVERED AND WAS MORE ALERT, CEASED SHAKING, WAS ABLE TO RESPOND TO SOME BASIC QUESTIONS ALTHOUGH NOT COMPLETELY APPROPRIATELY. DR. SUTTON AND MACIEL MAR IN ROOM TO ASSESS. ORDERED SEIZURE PRECAUTIONS AND SOME LABS WHICH HAVE BEEN DRAWN. SEIZURE PRECAUTIONS IN PLACE, LABS DRAWN. CONTINUING TO MONITOR.
[2025-06-24 20:30] LABS: Anion Gap 10.0 mmol/L (3-11); Blood Urea Nitrogen 25.0 mg/dL (8-24); CO2, Blood 24.0 mmol/L (21-32); Calcium, Blood 8.4 mg/dL (8.5-10.1); Chloride, Blood 109.0 mmol/L (98-108); Creatinine, Blood 0.45 mg/dL (0.40-1.00); Glucose, Blood 118.0 mg/dL (70-99); Potassium, Blood 3.2 mmol/L (3.5-5.5); Sodium, Blood 140.0 mmol/L (136-145)
[2025-06-24 20:55] LABS: pH Blood Venous 7.42 (7.34-7.37)
[2025-06-24] MEDS ORDERED: Potassium Chl 20MEQ/Water100ML 100 ML IV SCH (21:00)
--- NOTE | 2025-06-24 22:33 | NUR ---
NO SEIZURE-LIKE BEHAVIOR NOTED AT THIS TIME. PT REMAINS NON-RESPONSIVE TO VERBAL AND PHYSICAL STIMULI. SEIZURE PADS IN PLACE. TELE AND SP02 MONITORING. PT REMAIN TACHYPNEIC @ 30'S. VSS. FREQUENT MONITORING.
--- NOTE | 2025-06-24 23:15 | NUR ---
PT NOTED TO HAVE SEIZURE-LIKE ACTIVITY. BODY IS IN RIGID POSITION, WRISTS FLEXED TOWARD BODY, EYES OPEN AND GAZING. MEDICATED WITH VALIUM 5MG IVP WHICH QUICKLY RESOLVED SYMPTOMS. PT WAS ABLE TO TALK WITH STAFF, ALTHOUGH CONFUSED. PT ORIENTED TO SELF ONLY. VSS. ASSESSED PT FOR PAIN, DENIES. AIRWAY PATENT. SEIZURE PADS REMAIN IN PLACE. CALL LIGHT PROVIDED. CONTINUE TO MONITOR.
[2025-06-25 01:14] VITALS: BP 149/98
[2025-06-25 03:22] VITALS: BP 136/92
[2025-06-25 04:08] LABS: BASOPHILS ABSOLUTE AUTO 0.04 K/mm3 (0.00-0.23); BASOPHILS PERCENT AUTO 1 % (0-2); EOSINOPHILS ABSOLUTE AUTO 0.09 K/mm3 (0.00-0.68); EOSINOPHILS PERCENT AUTO 1 % (0-6); Hematocrit 38.5 % (33.0-51.0); Hemoglobin 13.0 g/dL (11.5-16.0); IMMATURE GRAN ABSOLUTE AUTO 0.04 K/mm3 (0.00-0.10); IMMATURE GRAN PERCENT AUTO 1 % (0-1); LYMPHOCYTES ABSOLUTE AUTO 1.19 K/mm3 (0.84-5.20); LYMPHOCYTES PERCENT AUTO 14 % (21-46); MONOCYTES ABSOLUTE AUTO 0.70 K/mm3 (0.16-1.47); MONOCYTES PERCENT AUTO 9 % (4-13); Mean Corpuscular HGB Conc 33.8 g/dL (31.5-36.5); Mean Corpuscular Volume 101 fL (80-100); NEUTROPHILS ABSOLUTE AUTO 6.21 K/mm3 (1.96-9.15); NEUTROPHILS PERCENT AUTO 75 % (41-73); NRBC ABSOLUTE 0.00 K/mm3 (0.00-0.02); NRBC Auto 0.0 /100 WBC (0.0-0.2); Platelet Count 192 K/mm3 (150-400); RDW Coefficient Variation 12.2 % (11.7-14.2); RDW Standard Deviation 45.6 fL (35.1-46.3)
[2025-06-25 04:30] LABS: Anion Gap 6.0 mmol/L (3-11); Blood Urea Nitrogen 20.0 mg/dL (8-24); CO2, Blood 29.0 mmol/L (21-32); Calcium, Blood 8.4 mg/dL (8.5-10.1); Chloride, Blood 108.0 mmol/L (98-108); Creatinine, Blood 0.46 mg/dL (0.40-1.00); Glucose, Blood 104.0 mg/dL (70-99); Potassium, Blood 3.9 mmol/L (3.5-5.5); Sodium, Blood 139.0 mmol/L (136-145)
--- NOTE | 2025-06-25 06:11 | NUR ---
SHIFT SUMMARY PT WAS INITIALLY IN POSTICTAL STATE AT BEGINNING OF SHIFT. SEVERAL EVENTS OF SEIZURE-LIKE ACTIVITY NOTED. MEDICATED PRN WITH VALIUM WHICH ABRUPTLY STOPPED SEIZURE-LIKE MOVEMENTS. PT BECAME AWAKE BUT ONLY ORIENTED TO SELF. SINCE LAST ADMINISTRATION OF VALIUM, PT HAS BEEN PARANOID OF STAFF AND DISORIENTED. PT BECAME INCREASINGLY AGITATED AND INTENSE. REQUESTED THAT HER SON COME TO HER ROOM STATING THAT SHE HEARD HIM TALKING IN THE HALLWAY. PT NOTED TO HAVE VISUAL AND AUDITORY HALLUCINATIONS, FREQUENTLY YELLING IN HER ROOM. PATIENT WAS ALSO MASTURBATING AND YELLING OUT FOR SEVERAL MINUTES. PT DID THROW A FAN FROM HER BEDSIDE TABLE ACROSS THE ROOM. NO ONE WAS HARMED. SEIZURE PADS REMAIN IN PLACE. CALL LIGHT AVAILABLE. DOOR LEFT OPEN FOR CLOSER MONITORING. BED IN LOW POSITION.
[2025-06-25 08:43] VITALS: BP 127/79
[2025-06-25 12:19] VITALS: BP 99/60
--- NOTE | 2025-06-25 18:59 | NUR ---
SHIFT SUMMARY: MENTATION SIGNIFICANTLY IMPROVED FROM BEGINING OF SHIFT TO END. AT THE BEGINING OF THE SHIFT SHE WAS A/OX2: SELF AND PLACE, ANXIOUS, VERBALLY COMBATIVE, AND LETHARGIC. BY END OF SHIFT SHE SHE IS A/OX3-4, PLEASANT AND COOPERATIVE WITH CARE, AND WIDE AWAKE. PT'S SON JENN CAME TO BEDSIDE THIS AFTERNOON, CONSULTED WITH HIM TO COMPLETE HER MRI SCREENING FORM, MRI AND EEG ORDERED FOR 06/26. NSR, DENIES CHEST PAIN OR PRESSURE. ON 3-3.5L O2 VIA NC, RT COMPLETED SCHEDULD ROUNDS, DENIES SOB. SHERWOOD CATH IN PLACE, PATENT AND DRAINING TO GRAVITY, URINE IS CLEAR AND YELLOW. HAD A LARGE BM ON A BED VIDES THIS SHIFT. O2 MONITOR ON LEFT TOE, PROTECTIVE MEPALEX PLACED ON LEFT FOOT TO OFF LOAD PRESSURE OF THE MONITOR BETWEEN THE SOCK AND SKIN. AT APPROX 1620 SHE BECAME TREMULOUS AND BEGAN POSTURING WITH CLINCHED FISTS, MEDICATED WITH VALIUM PER EMAR, TREMORS IMPROVED.
[2025-06-25 20:34] VITALS: BP 104/59
[2025-06-26] VITALS (7 sets, daily range): BP systolic 95–122; BP diastolic 55–87
[2025-06-26 04:19] LABS: BASOPHILS ABSOLUTE AUTO 0.06 K/mm3 (0.00-0.23); BASOPHILS PERCENT AUTO 1 % (0-2); EOSINOPHILS ABSOLUTE AUTO 0.28 K/mm3 (0.00-0.68); EOSINOPHILS PERCENT AUTO 4 % (0-6); Hematocrit 35.1 % (33.0-51.0); Hemoglobin 11.8 g/dL (11.5-16.0); IMMATURE GRAN ABSOLUTE AUTO 0.04 K/mm3 (0.00-0.10); IMMATURE GRAN PERCENT AUTO 1 % (0-1); LYMPHOCYTES ABSOLUTE AUTO 1.39 K/mm3 (0.84-5.20); LYMPHOCYTES PERCENT AUTO 20 % (21-46); MONOCYTES ABSOLUTE AUTO 0.75 K/mm3 (0.16-1.47); MONOCYTES PERCENT AUTO 11 % (4-13); Mean Corpuscular HGB Conc 33.6 g/dL (31.5-36.5); Mean Corpuscular Volume 102 fL (80-100); NEUTROPHILS ABSOLUTE AUTO 4.55 K/mm3 (1.96-9.15); NEUTROPHILS PERCENT AUTO 64 % (41-73); NRBC ABSOLUTE 0.00 K/mm3 (0.00-0.02); NRBC Auto 0.0 /100 WBC (0.0-0.2); Platelet Count 182 K/mm3 (150-400); RDW Coefficient Variation 12.3 % (11.7-14.2); RDW Standard Deviation 45.9 fL (35.1-46.3)
--- NOTE | 2025-06-26 04:25 | NUR ---
SHIFT SUMMARY PT REMAINED A/OX4 T/O SHIFT. PLEASANT AND COOPERATIVE WITH ALL CARE. PT EXPRESSED APPRECIATION TOWARD STAFF AND APOLOGIZED SEVERAL TIMES FOR HER PERCEIVED RUDE BEHAVIOR PRIOR. PT TACHYPNIC BUT IN NO RESP DISTRESS. LS CLEAR AND DIMINISHED T/O. BIOX >90% ON 2L/MIN HUMIDIFIED NC. SHERWOOD DRAINING CLEAR YELLOW URINE. PT RICHARD PO INTAKE WELL. PROVIDED WITH WARM BLANKETS SEVERAL TIMES. PT BECAME UNCOMFORTABLE AND HAD DIFFICULTY FALLING ASLEEP. MEDICATED WITH PRN PAIN MEDICATION. PT BEGAN TO HAVE TREMORS/SPASMS IN LEGS, PT REQUESTED MEDICATION. GIVEN VALIUM PER EMAR. AFTERWARDS, SHE WAS ABLE TO SLEEP. VSS. CALL LIGHT REMAINED IN REACH AND UTILIZED APPROPRIATELY. BED IN LOWEST POSITION AND SEIZURE PADS IN PLACE PRECAUTIONARY.
[2025-06-26 04:53] LABS: Anion Gap 7.0 mmol/L (3-11); Blood Urea Nitrogen 20.0 mg/dL (8-24); CO2, Blood 28.0 mmol/L (21-32); Calcium, Blood 8.4 mg/dL (8.5-10.1); Chloride, Blood 109.0 mmol/L (98-108); Creatinine, Blood 0.56 mg/dL (0.40-1.00); Glucose, Blood 112.0 mg/dL (70-99); Magnesium, Blood 2.0 mg/dL (1.6-2.4); Potassium, Blood 3.3 mmol/L (3.5-5.5); Sodium, Blood 141.0 mmol/L (136-145)
[2025-06-26] MEDS ORDERED: CefTRIAXone Sodium 1,000 MG in NS 100 ML IV SCH (14:00)
[2025-06-26] MEDS ORDERED: Formoterol/Mometasone MDI 5/200 mcg 13 GM INH SCH (14:15)
--- NOTE | 2025-06-26 18:51 | NUR ---
SHIFT SUMMARY: PT A&OX4 FOLLOWS COMMANDS AND MAKES NEEDS KNOWN TO STAFF. SHERWOOD REMAINS IN PLACE, DRAINING YELLOW URINE. PT NOT COOPERATIVE WITH ASSESSMENTS. THROUGHOUT THE DAY AND "COULDN'T DO SOMETHING" WHEN ASKED BUT WAS ABLE TO DO IT PRIOR TO ASKING. MRI WAS PERFOREMED TODAY. PT HAD SHAKING TO HER ARMS AND LEGS THROUGHOUT THE MORNING AND WAS CLAIMING THAT SHE WAS HAVING A SEIZURE, ALTHOUGH SHE WAS AWAKE AND TALKING TO THIS RN. PT REPORTED FEELING TIRED ALL DAY AND DID NOT WANT TO PARTICIPATE WITH PT, BUT THEN WANTED TO AFTER PT HAD LEFT. DENIES ANY COMPLAINTS OF CP, PRESSURE, TIGHTNESS, SOB OR ANY OTHER COMPLAINTS. SINUS RYTHM ON THE MONITOR. VSS. NO SIGNIFICANT EVENTS HAPPENED DURING THIS SHIFT. WILL CONTINUE TO CARE FOR PT TILL END OF SHIFT.
--- NOTE | 2025-06-26 21:06 | NUR ---
ASSUMED CARE OF PT AT 1900. PT IS A+O X 3-4 CONFUSED ON DATE AND TIME BUT STATES THIS IS FROM LACK OF SLEEP SINCE ARRIVING TO THE HOSPITAL. PT IS UPSET ABOUT LACK OF SLEEP AND WOULD LIKE TO TRY TO HAVE LONGER PERIODS UNINTERRUPTED TONIGHT. CURRENLTY ON 1 L NC SATTING >92% ON MONITOR. VSS. ORAL CARE AND CATH CARE PROVIDED BY HIGHWAY WORKER. SHE IS CURRENTLY SITTING UP IN BED ON HER PERSONAL CELL PHONE. BED IN LOWEST POSTION, PADS ON RAILING, CALL LIGHT IN REACH.
[2025-06-27 03:46] VITALS: BP 105/64
[2025-06-27 04:07] LABS: BASOPHILS ABSOLUTE AUTO 0.06 K/mm3 (0.00-0.23); BASOPHILS PERCENT AUTO 1 % (0-2); EOSINOPHILS ABSOLUTE AUTO 0.26 K/mm3 (0.00-0.68); EOSINOPHILS PERCENT AUTO 4 % (0-6); Hematocrit 37.3 % (33.0-51.0); Hemoglobin 12.1 g/dL (11.5-16.0); IMMATURE GRAN ABSOLUTE AUTO 0.03 K/mm3 (0.00-0.10); IMMATURE GRAN PERCENT AUTO 0 % (0-1); LYMPHOCYTES ABSOLUTE AUTO 1.55 K/mm3 (0.84-5.20); LYMPHOCYTES PERCENT AUTO 22 % (21-46); MONOCYTES ABSOLUTE AUTO 0.68 K/mm3 (0.16-1.47); MONOCYTES PERCENT AUTO 9 % (4-13); Mean Corpuscular HGB Conc 32.4 g/dL (31.5-36.5); Mean Corpuscular Volume 104 fL (80-100); NEUTROPHILS ABSOLUTE AUTO 4.64 K/mm3 (1.96-9.15); NEUTROPHILS PERCENT AUTO 64 % (41-73); NRBC ABSOLUTE 0.00 K/mm3 (0.00-0.02); NRBC Auto 0.0 /100 WBC (0.0-0.2); Platelet Count 182 K/mm3 (150-400); RDW Coefficient Variation 12.2 % (11.7-14.2); RDW Standard Deviation 47.4 fL (35.1-46.3)
[2025-06-27 04:26] LABS: Anion Gap 6.0 mmol/L (3-11); Blood Urea Nitrogen 20.0 mg/dL (8-24); CO2, Blood 31.0 mmol/L (21-32); Calcium, Blood 8.6 mg/dL (8.5-10.1); Chloride, Blood 108.0 mmol/L (98-108); Creatinine, Blood 0.51 mg/dL (0.40-1.00); Glucose, Blood 98.0 mg/dL (70-99); Potassium, Blood 3.7 mmol/L (3.5-5.5); Sodium, Blood 141.0 mmol/L (136-145)
--- NOTE | 2025-06-27 06:40 | NUR ---
NOC SHIFT SUMMARY NO ACUTE CHANGES TO REPORT FROM LAST NOTE. NO SEIZURE LIKE ACTIVITY WITNESSED BY STAFF TONIGHT OR REPORTED FROM PATIENT. SHE WAS ABLE TO REST ON AND OFF DURING THE NIGHT LIE SHE REQUESTED TOO. VSS. SHE IS CURRENTLY ON 1L NC SATTING 95% SPO2. BREATHING EVEN AND UNLABORED. MEDS TAKEN WHOLE WITH WATER. SEIZURE PADS REMAIN ON BEDRAILS FOR SAFETY, BED IN LOWEST POSTION, CALL LIGHT IN REACH. WILL REPORT TO ONCOMING RN.
--- NOTE | 2025-06-27 08:11 | NUR ---
UPDATE: THIS RN AT BEDSIDE TO ASSESS PT. PT A&OX4. PT ACTING VERY PARANOID THIS AM. "THESE PHONES ARE BUGGED" "I NEED TO CALL THE DISEASE CASE MANAGER" "YOUR TRACKING MY SON AND TELLING HIM LIES, THATS ILLEGAL" PT REFUSING MEDS, ASSESSMENT, BREATHING TREATMENT, AND BREAKFAST STATING THAT WE ARE TRYING TO POISON HER. PT RESTING IN BED AT THIS TIME. DOES NOT APPEAR TO BE IN ANY DISTRESS. BREATHING EQUAL AND NONLABORED. 02 SATS 93%. SINUS RYTHM IN THE 80'S. SON CALLED AND IS ON HIS WAY. WILL CONTINUE TO CARE FOR PT.
[2025-06-27 09:35] VITALS: BP 113/75
--- NOTE | 2025-06-27 10:15 | NUR ---
INITIAL ASSESSMENT: This RN at the bedside azalea has been refusing to let primary care RN care for her. She is alert and oriented x3. She asks where, "eye spy" is, when asked what she means she states she is referring to her priamry RN today, mello. She states she is in "alot of pain all over." Patient medicated with am meds and oxycodone crushed in yogurt per patient request. HRR, she is SR in the 80s. LS DIM T/O her biox was high 80s on RA, patients oxygen placed-shes on 1L oxygen saturations increased up into the low 90s. BT+, pt states she had a bm last night and it was "hard," stool softners given with am meds.PPP. Patient has scattered bruising and skin tears. She has a preventative mepilex to her coccyx and the top of her left foot. Skin is intact and not red under both dressings. She denies any other needs at this time. Call light in reach.
--- NOTE | 2025-06-27 12:14 | NUR ---
TRANSFER TO MEDICAL FLOOR: REPORT CALLED TO ABHI BULLARD. PT TRANSPORTED TO MEDICAL FLOOR [facility] BED. BELONGINGS COLLECTED AND TAKEN WITH PT. SON CALLED AND NOTIFIED OF PT TRANSFER TO ROOM 310.
--- NOTE | 2025-06-27 12:16 | NUR ---
TRANSFER TO [facility] REPORT RECEIVED FROM PCU. PT ARRIVED AWAKE AND ALERT IN BED. SWAPPED BEDS. CAHRT AND MEDICATIONS LOCKED IN CHART BOX. PT SET UP FOR LUNCH. BED LOW AND LOCKED. CALL LIGHT ON HER LAP. SHERWOOD HANGING FROM UNDER THE BED ON APPROVED HANGING DEVICE. URINE MELISSA, CLEAR. CARE ONGOING.
[2025-06-27 15:26] VITALS: BP 100/80
--- NOTE | 2025-06-27 17:07 | NUR ---
NOTE PT TRANSFERED FROM PCU THIS MORNING. PT ARRIVED AGGITATED. SHE DOESN'T REMEMBER BEING UP HERE. THE DAY HAS PROGRESSED HER ORIENTATION HAS IMPROVED. NO SEIZURE LIKE ACTIVITY NOTED. VSS. ENCOURAGED TO EAT/DRINK. SHE REFUSED PHYSICAL THERAPY. MEDICATED FOR PAIN X2. SHERWOOD PATENT. PT EXPRESSED DIFFICULTY CHEWING FOOD. CALLED THE KITCHEN AND ASKED FOR MINCE AND MOIST. CARE ONGOING.
[2025-06-27 19:48] VITALS: BP 113/65
[2025-06-28 00:04] VITALS: BP 117/69
--- NOTE | 2025-06-28 04:33 | NUR ---
SHIFT SUMMARY PATIENT ALERT AND ORIENTED X3. PATIENT MAKE NEEDS KNOWN, REMAINED PLEASANT AND RECEPTIVE TO CARE. VITAL SIGNS STABLE. PAIN MEDICATION ADMINISTERED PER EMAR. NO ACUTE CHANGE THROUGHOUT THE SHIFT. BED IN LOCKED AND IN LOWEST POSITION. CALL LIGHT WITHIN REACH.
[2025-06-28 05:13] VITALS: BP 117/78
[2025-06-28 06:53] LABS: BASOPHILS ABSOLUTE AUTO 0.05 K/mm3 (0.00-0.23); BASOPHILS PERCENT AUTO 1 % (0-2); EOSINOPHILS ABSOLUTE AUTO 0.20 K/mm3 (0.00-0.68); EOSINOPHILS PERCENT AUTO 3 % (0-6); Hematocrit 38.4 % (33.0-51.0); Hemoglobin 12.5 g/dL (11.5-16.0); IMMATURE GRAN ABSOLUTE AUTO 0.03 K/mm3 (0.00-0.10); IMMATURE GRAN PERCENT AUTO 0 % (0-1); LYMPHOCYTES ABSOLUTE AUTO 1.27 K/mm3 (0.84-5.20); LYMPHOCYTES PERCENT AUTO 17 % (21-46); MONOCYTES ABSOLUTE AUTO 0.65 K/mm3 (0.16-1.47); MONOCYTES PERCENT AUTO 9 % (4-13); Mean Corpuscular HGB Conc 32.6 g/dL (31.5-36.5); Mean Corpuscular Volume 103 fL (80-100); NEUTROPHILS ABSOLUTE AUTO 5.25 K/mm3 (1.96-9.15); NEUTROPHILS PERCENT AUTO 71 % (41-73); NRBC ABSOLUTE 0.00 K/mm3 (0.00-0.02); NRBC Auto 0.0 /100 WBC (0.0-0.2); Platelet Count 202 K/mm3 (150-400); RDW Coefficient Variation 12.0 % (11.7-14.2); RDW Standard Deviation 45.6 fL (35.1-46.3)
[2025-06-28 07:09] LABS: Alanine Aminotransfer (ALT/SGP 35.0 U/L (12-78); Albumin, Blood 2.8 g/dL (3.4-5.0); Albumin/Globulin Ratio 1.1 (0.8-1.8); Anion Gap 6.0 mmol/L (3-11); Aspartate Aminotrans (AST/SGOT 36.0 U/L (12-37); Bilirubin, Total 0.3 mg/dL (0.1-1.0); Blood Urea Nitrogen 19.0 mg/dL (8-24); CO2, Blood 31.0 mmol/L (21-32); Calcium, Blood 8.8 mg/dL (8.5-10.1); Chloride, Blood 106.0 mmol/L (98-108); Creatinine, Blood 0.5 mg/dL (0.40-1.00); Globulin, Blood 2.6 g/dL (2.2-4.0); Glucose, Blood 107.0 mg/dL (70-99); Potassium, Blood 3.4 mmol/L (3.5-5.5); Sodium, Blood 140.0 mmol/L (136-145); Total Protein, Blood 5.4 g/dL (6.4-8.2)
[2025-06-28 07:16] VITALS: BP 115/61
[2025-06-28 11:28] VITALS: BP 126/73
--- NOTE | 2025-06-28 12:22 | NUR ---
911 PT CURRENTLY CALLING 911 TO REQUEST A BLACKTOP SPREADER COME TALK TO HER. NO SPACIFIC COMPLAINTS BUT SHE STATED NURSEING COULD RECOD THE TALK. CARE ONGOING.
[2025-06-28 15:44] VITALS: BP 104/72
--- NOTE | 2025-06-28 16:52 | NUR ---
NOTE PT ALERT. MEDICATED WITH VALIUM X1. PT WAS CLIMBING OOB, VERY PARANOID AND CONFUSED. DEMANDING TO CALL 911. PHONE WAS PROVIDED TO HER. VALIUM DID NOT SEDATE HER BUT OVER SEVERAL HOURS THE PARANOIA RESOLVED. THE SNIPPY, ANGRY POOR EYE CONTACT RESOLVED. PT CURRENTLY USING STAFF NAME. SMILING AND INTERACTIVE. TELLING STORIES. USING HER CALL LIGHT. SHE IS ALSO HUNGRY. VSS. SHERWOOD PATENT. RIGHT FA IV PATENT. REQUESTED, FROM DR JACOBS, TO CHANGE HER KEPPRA AND ANTIBIOTIC TO PO. HE AGREED BUT NO ORDERS RECEIVED. NO SEIZURE LIKE ACTIVITY NOTED. SEIZURE PADS ON BED SIDE RAILS. BED LOW LOCKED. SHE REFUSED SLIPPY SOCKS AND SCD'S. CALL LIGHT IN REACH. ENCOURAGED TO DRINK WATER.
[2025-06-28 21:07] VITALS: BP 110/66
[2025-06-29] VITALS (7 sets, daily range): BP systolic 93–122; BP diastolic 66–77
[2025-06-29 05:33] LABS: BASOPHILS ABSOLUTE AUTO 0.06 K/mm3 (0.00-0.23); BASOPHILS PERCENT AUTO 1 % (0-2); EOSINOPHILS ABSOLUTE AUTO 0.18 K/mm3 (0.00-0.68); EOSINOPHILS PERCENT AUTO 3 % (0-6); Hematocrit 37.5 % (33.0-51.0); Hemoglobin 12.5 g/dL (11.5-16.0); IMMATURE GRAN ABSOLUTE AUTO 0.03 K/mm3 (0.00-0.10); IMMATURE GRAN PERCENT AUTO 1 % (0-1); LYMPHOCYTES ABSOLUTE AUTO 1.52 K/mm3 (0.84-5.20); LYMPHOCYTES PERCENT AUTO 25 % (21-46); MONOCYTES ABSOLUTE AUTO 0.64 K/mm3 (0.16-1.47); MONOCYTES PERCENT AUTO 10 % (4-13); Mean Corpuscular HGB Conc 33.3 g/dL (31.5-36.5); Mean Corpuscular Volume 103 fL (80-100); NEUTROPHILS ABSOLUTE AUTO 3.75 K/mm3 (1.96-9.15); NEUTROPHILS PERCENT AUTO 61 % (41-73); NRBC ABSOLUTE 0.00 K/mm3 (0.00-0.02); NRBC Auto 0.0 /100 WBC (0.0-0.2); Platelet Count 183 K/mm3 (150-400); RDW Coefficient Variation 12.0 % (11.7-14.2); RDW Standard Deviation 45.5 fL (35.1-46.3)
[2025-06-29 05:56] LABS: Alanine Aminotransfer (ALT/SGP 37.0 U/L (12-78); Albumin, Blood 2.9 g/dL (3.4-5.0); Albumin/Globulin Ratio 1.0 (0.8-1.8); Anion Gap 7.0 mmol/L (3-11); Aspartate Aminotrans (AST/SGOT 34.0 U/L (12-37); Bilirubin, Total 0.3 mg/dL (0.1-1.0); Blood Urea Nitrogen 19.0 mg/dL (8-24); CO2, Blood 30.0 mmol/L (21-32); Calcium, Blood 8.7 mg/dL (8.5-10.1); Chloride, Blood 108.0 mmol/L (98-108); Creatinine, Blood 0.5 mg/dL (0.40-1.00); Globulin, Blood 2.8 g/dL (2.2-4.0); Glucose, Blood 96.0 mg/dL (70-99); Potassium, Blood 3.7 mmol/L (3.5-5.5); Sodium, Blood 141.0 mmol/L (136-145); Total Protein, Blood 5.7 g/dL (6.4-8.2)
--- NOTE | 2025-06-29 06:51 | NUR ---
SHIFT SUMMARY 230, PT BEGAN YELLING OUT. THIS RN CHECKED ON PT. SHE WAS YELLING AND HAD HER HANDS AROUND HER THROAT, STRANGLING HERSELF. ATTEMPED TO REMOVE PT S HANDS FROM HER THROAT, BUT SHE WOULD NOT BUDGE. PT GIVEN 5MG IV PRN ATIVAN, AND PT WENT TO SLEEP PEACEFULLY. APPROX 0020, PT BEGAN CALLING OUT AGAIN, AND WAS HALLUCINATING ABOUT HER SON AND HER PUPPY TURNING OFF HER LIGHTS. PT AWAKE OFF AND ON, TALKED WITH THIS RN ABOUT HER HALUCINATIONS. STATED SHE WAS SEEING PUPPIES. PT FELL ASLEEP AND STAYED ASLEEP FOR REMAINDER OF SHIFT
[2025-06-29] MEDS ORDERED: LORazepam 2 MG/ML 1ML Injection IV ONE (13:35)
[2025-06-29 14:38] LABS: Magnesium, Blood 2.0 mg/dL (1.6-2.4); Phosphorus, Blood 3.9 mg/dL (2.5-4.9)
--- NOTE | 2025-06-29 18:43 | NUR ---
SHIFT SUMMARY ADMIT SINCE 06/23/25 FOR ACUTE METABOLIC ENCEPHALOPATHY. PT RECEIVING IV ROCEPHIN FOR UTI + AND KEPPRA FOR EMPIRIC SZ TREATMENT. PT HAVING WAXING AND WANING AUDITORY AND VISUAL HALLUCINATIONS. SON, JENN, NOTING THIS IS ACUTE CHANGE 1 WK PRIOR TO ADMISSION. PT NORMALLY A&OX4, INDEPENDENT LIVING IN HIS HOME. PT MAINTAINING 90%+ ON 2L NC TODAY. PLAN TO ATTEMPT TO TITRATE BACK TO RA WHICH IS BASELINE. PT REQ'D REFERRAL FOR IN HOME. PLAN FOR EEG TOMORROW IF PT OFF BENZOS PER EX CHEF. TECH TO CALL RN AT 0830 TO TOUCH BASE TOMORROW. MAINTAINING SR IN 90S BPM ON TELEMETRY.
--- NOTE | 2025-06-30 04:15 | NUR ---
PT A&O X4, BUT VERY PARANOID, AND DELUSIONAL MOST TIME. VS WNL, SHERWOOD INTACT WITH CLEAR YELLOW URINE. TELE NSR WITH 1ST DEGREE BLOCK. REQUESTED PAIN MED X1, ALTHOUGH STATED IT DIDN'T HELP MUCH, BUT DID FALL ASLEEP. CONTINUES TO BECOME DYSPENIC WITH ANY EXERTION. PLAN IS FOR PT TO HAVE EEG IF OFF BENZO'S FOR 24HR'S, THIS WILL BE AT 1250 TODAY. USES CALL SYSTEM APPROPRIATELY.
[2025-06-30 04:46] VITALS: BP 115/76
[2025-06-30 07:08] LABS: BASOPHILS ABSOLUTE AUTO 0.07 K/mm3 (0.00-0.23); BASOPHILS PERCENT AUTO 1 % (0-2); EOSINOPHILS ABSOLUTE AUTO 0.25 K/mm3 (0.00-0.68); EOSINOPHILS PERCENT AUTO 4 % (0-6); Hematocrit 39.8 % (33.0-51.0); Hemoglobin 13.2 g/dL (11.5-16.0); IMMATURE GRAN ABSOLUTE AUTO 0.05 K/mm3 (0.00-0.10); IMMATURE GRAN PERCENT AUTO 1 % (0-1); LYMPHOCYTES ABSOLUTE AUTO 1.65 K/mm3 (0.84-5.20); LYMPHOCYTES PERCENT AUTO 23 % (21-46); MONOCYTES ABSOLUTE AUTO 0.67 K/mm3 (0.16-1.47); MONOCYTES PERCENT AUTO 9 % (4-13); Mean Corpuscular HGB Conc 33.2 g/dL (31.5-36.5); Mean Corpuscular Volume 104 fL (80-100); NEUTROPHILS ABSOLUTE AUTO 4.48 K/mm3 (1.96-9.15); NEUTROPHILS PERCENT AUTO 63 % (41-73); NRBC ABSOLUTE 0.00 K/mm3 (0.00-0.02); NRBC Auto 0.0 /100 WBC (0.0-0.2); Platelet Count 197 K/mm3 (150-400); RDW Coefficient Variation 12.1 % (11.7-14.2); RDW Standard Deviation 46.5 fL (35.1-46.3)
[2025-06-30 07:39] LABS: Alanine Aminotransfer (ALT/SGP 38.0 U/L (12-78); Albumin, Blood 3.1 g/dL (3.4-5.0); Albumin/Globulin Ratio 1.0 (0.8-1.8); Anion Gap 5.0 mmol/L (3-11); Aspartate Aminotrans (AST/SGOT 30.0 U/L (12-37); Bilirubin, Total 0.3 mg/dL (0.1-1.0); Blood Urea Nitrogen 28.0 mg/dL (8-24); CO2, Blood 32.0 mmol/L (21-32); Calcium, Blood 8.8 mg/dL (8.5-10.1); Chloride, Blood 103.0 mmol/L (98-108); Creatinine, Blood 0.62 mg/dL (0.40-1.00); Globulin, Blood 3.1 g/dL (2.2-4.0); Glucose, Blood 93.0 mg/dL (70-99); Magnesium, Blood 2.1 mg/dL (1.6-2.4); Phosphorus, Blood 4.1 mg/dL (2.5-4.9); Potassium, Blood 4.0 mmol/L (3.5-5.5); Sodium, Blood 136.0 mmol/L (136-145); Total Protein, Blood 6.2 g/dL (6.4-8.2)
[2025-06-30 07:41] VITALS: BP 109/69
[2025-06-30 12:03] VITALS: BP 99/65
[2025-06-30 15:54] VITALS: BP 93/55
--- NOTE | 2025-06-30 17:21 | NUR ---
SHIFT SUMMARY PT AOX3-4 WITH MOMENT OF CONFUSION. MORE ORIENTED TODAY THAN YESTERDAYS SHIFT. PT CALLS. MEDICATED FOR PAIN PER THE EMAR. 1 ASSIST WITH THE FWW TO THE BR. SHOWER DONE TODAY AND PT TOLERATED IT WELL. REPOSITIONS SELF IN BED, NO EVENTS PER TELE. GOOD APPETITE. CALL LIGHT WITHIN REACH, BED LOCKED AND IN THE LOWEST POSITION. WILL REPORT TO ONCOMING NURSE.
[2025-06-30 18:03] VITALS: BP 93/64
[2025-06-30 19:33] VITALS: BP 109/70
[2025-07-01 04:30] LABS: Source, Urine Clean Catch
[2025-07-01 04:35] LABS: Bilirubin, Urine Neg (Neg); Glucose Qualitative, Urine Neg (Neg); Ketones, Urine Neg (Neg); Leukocyte Esterase, Urine Neg (Neg); Protein, Urine Neg (Neg); Specific Gravity, Urine 1.015 (1.003-1.022); Urobilinogen, Urine NORM (Normal)
[2025-07-01 04:57] LABS: Color, Urine Yellow (P-Yellow)
--- NOTE | 2025-07-01 05:18 | NUR ---
PT A&O X4, VS WNL, PO INTAKE WNL, SHERWOOD INTACT AND UOP WNL, CATH CARE DONE. PT STILL HAVING PARANOIA AND DELUSIONAL EPISODES. TELE NSR WITH 1ST DEGREE BLOCK. BED MOBILITY INDEPENDENT, AND UP WITH FWW WITH ASSIST FOR AMBULATION. MEDICATED WITH VALIUM AT HS AND PT SLEPT ALL NIGHT. PLAN TO D/C TO HOME WITH HH.
[2025-07-01 05:27] VITALS: BP 96/53
[2025-07-01 05:42] LABS: BASOPHILS ABSOLUTE AUTO 0.06 K/mm3 (0.00-0.23); BASOPHILS PERCENT AUTO 1 % (0-2); EOSINOPHILS ABSOLUTE AUTO 0.23 K/mm3 (0.00-0.68); EOSINOPHILS PERCENT AUTO 4 % (0-6); Hematocrit 38.8 % (33.0-51.0); Hemoglobin 12.5 g/dL (11.5-16.0); IMMATURE GRAN ABSOLUTE AUTO 0.04 K/mm3 (0.00-0.10); IMMATURE GRAN PERCENT AUTO 1 % (0-1); LYMPHOCYTES ABSOLUTE AUTO 1.57 K/mm3 (0.84-5.20); LYMPHOCYTES PERCENT AUTO 25 % (21-46); MONOCYTES ABSOLUTE AUTO 0.63 K/mm3 (0.16-1.47); MONOCYTES PERCENT AUTO 10 % (4-13); Mean Corpuscular HGB Conc 32.2 g/dL (31.5-36.5); Mean Corpuscular Volume 104 fL (80-100); NEUTROPHILS ABSOLUTE AUTO 3.87 K/mm3 (1.96-9.15); NEUTROPHILS PERCENT AUTO 61 % (41-73); NRBC ABSOLUTE 0.00 K/mm3 (0.00-0.02); NRBC Auto 0.0 /100 WBC (0.0-0.2); Platelet Count 193 K/mm3 (150-400); RDW Coefficient Variation 12.0 % (11.7-14.2); RDW Standard Deviation 46.1 fL (35.1-46.3)
[2025-07-01 06:12] LABS: Alanine Aminotransfer (ALT/SGP 32.0 U/L (12-78); Albumin, Blood 3.0 g/dL (3.4-5.0); Albumin/Globulin Ratio 1.0 (0.8-1.8); Anion Gap 7.0 mmol/L (3-11); Aspartate Aminotrans (AST/SGOT 26.0 U/L (12-37); Bilirubin, Total 0.2 mg/dL (0.1-1.0); Blood Urea Nitrogen 31.0 mg/dL (8-24); CO2, Blood 30.0 mmol/L (21-32); Calcium, Blood 9.2 mg/dL (8.5-10.1); Chloride, Blood 105.0 mmol/L (98-108); Creatinine, Blood 0.62 mg/dL (0.40-1.00); Globulin, Blood 2.9 g/dL (2.2-4.0); Glucose, Blood 105.0 mg/dL (70-99); Potassium, Blood 4.2 mmol/L (3.5-5.5); Sodium, Blood 138.0 mmol/L (136-145); Total Protein, Blood 5.9 g/dL (6.4-8.2)
[2025-07-01 07:15] VITALS: BP 94/51
[2025-07-01 11:10] VITALS: BP 96/63
[2025-07-01 15:04] VITALS: BP 92/66
[2025-07-01] MEDS ORDERED: LEVE500 PO (15:42)
[2025-07-01] MEDS ORDERED: DIAZ5 PO (15:43)
[2025-07-01] MEDS ORDERED: Seroquel Xr50 MG PO (15:44)
[2025-07-01] MEDS ORDERED: Percocet 5-3251 EACH PO (16:38)
--- NOTE | 2025-07-01 17:24 | NUR ---
CALLED DR JACOBS- PT HAS ORDR TO ENSURE SHE IS NOT RETAINING PT ABLE TO VOID 150ML OF URINE, POST VOID BLADDER SCAN 8ML. MD AWARE OK TO IN PT HOME. PT HAS PERCOCET 10/325 AT HOME HOWEVER 5/325 WAS ORDERED AT IN. SPOKE TO TO CLARIFY. HE PROVIDED A HARD COPY SCRIPT FOR THE 5/325 DOSE.
--- NOTE | 2025-07-01 17:45 | NUR ---
DISCHARGE SUMMARY IV REMOVED BY DRAGLINE OILER. DISCHARGE EDUCATION AND INSTRUCTIONS REVIEWED. NEW MEDICATIONS REVIEWED AND 2 PRINTED PRESCRIPTIONS GIVEN DIRECTLY TO JENN LUIS, FOR VALIUM AND PERCOCET. RX IMAGES SCANNED AND PLACED IN CHART. ALL QUESTIONS ANSWERED. PT TRANSPORTED TO JENN LUIS'S, VEHICLE VIA WHEELCHAIR WITH HOME OXYGEN DEL[facility] BY [facility]. OXYGEN TITRATED TO 3L VIA NC. PT NO LONGER IN ANY DISTRESS, IS AWAKE, ALERT, ORIENTED X4, AND DENYING ANY PARANOIA, DELUSIONS, OR HALLUCINATIONS.
== END 2025-07-01 17:24 | disposition home health service (06) | DRG 91 ==
LOC: ER 10:11 → ERHOLD 10:12 → MEDS 10:12 → PCU 06-24 18:48 → MEDS 06-27 12:11
PROVIDERS: Emergency Medicine; Family Medicine; Internal Medicine; Nurse Practitioner Acute Care; ADMIT Internal Medicine
DX: G93.1 Anoxic brain damage, not elsewhere classified (principal); A41.9 Sepsis, unspecified organism; G93.41 Metabolic encephalopathy; J96.21 Acute and chronic respiratory failure with hypoxia; J96.22 Acute and chronic respiratory failure with hypercapnia; G92.8 Other toxic encephalopathy; R65.20 Severe sepsis without septic shock; N39.0 Urinary tract infection, site not specified; F05 Delirium due to known physiological condition; Z68.1 Body mass index [BMI] 19.9 or less, adult; Z66 Do not resuscitate; Z99.81 Dependence on supplemental oxygen; E89.0 Postprocedural hypothyroidism; J44.9 Chronic obstructive pulmonary disease, unspecified; R54 Age-related physical debility; G90.81 Serotonin syndrome; G47.00 Insomnia, unspecified; M54.9 Dorsalgia, unspecified; M81.0 Age-related osteoporosis without current pathological fracture; F41.9 Anxiety disorder, unspecified; K21.9 Gastro-esophageal reflux disease without esophagitis; F17.210 Nicotine dependence, cigarettes, uncomplicated; G89.4 Chronic pain syndrome; E87.6 Hypokalemia; R25.2 Cramp and spasm; R25.1 Tremor, unspecified; F11.90 Opioid use, unspecified, uncomplicated; B96.20 Unspecified Escherichia coli [E. coli] as the cause of diseases classified elsewhere; Z86.711 Personal history of pulmonary embolism; Z88.0 Allergy status to penicillin; Z91.048 Other nonmedicinal substance allergy status; Z86.73 Personal history of transient ischemic attack (TIA), and cerebral infarction without residual deficits; Z79.899 Other long term (current) drug therapy; Z79.51 Long term (current) use of inhaled steroids; Z71.6 Tobacco abuse counseling; Z79.01 Long term (current) use of anticoagulants
CPT/HCPCS: 36415; 51701; 51702; 51798; 70450; 70551; 71045; 74177; 80048; 80053; 81001; 82140; 82330; 82803; 82947; 83605; 83735; 84100; 84145; 84146; 84443; 84484; 85025; 87040; 87077; 87086; 87186; 87637; 93005; 93010; 94640; 94664; 94760; 94762; 96361; 96365-59; 96372; 96375-59; 96376-59; 97110; 97116; 97162; 97165; 97530; 99285-25; A9270; G0378; J0692; J0696; J1953; J2060; J2270; J2470; J3360; J3480; J7030; J7050; J7120; Q9967

== ENCOUNTER 2025-08-27 12:29 | Inpatient (IN) | payer MEDICARE, OTHER ==
[~2025-08-27] VITALS: Ht 165.1 cm; Wt 48.5 kg
[~2025-08-27 12:29] MED LIST changes: +BACL10 PO; +BREZTRI AEROS10.7 GM INH; +CYMBALTA60 M1 PO; +DIAZ5 PO; +DULO30 PO; +ELIQUIS5 M2 PO; +LEVE500 PO; +Percocet 5-3251 EACH PO; +Seroquel Xr50 MG PO
[2025-08-27 13:25] LABS: BASOPHILS ABSOLUTE AUTO 0.05 K/mm3 (0.00-0.23); BASOPHILS PERCENT AUTO 1 % (0-2); EOSINOPHILS ABSOLUTE AUTO 0.01 K/mm3 (0.00-0.68); EOSINOPHILS PERCENT AUTO 0 % (0-6); Hematocrit 42.4 % (33.0-51.0); Hemoglobin 14.1 g/dL (11.5-16.0); IMMATURE GRAN ABSOLUTE AUTO 0.02 K/mm3 (0.00-0.10); IMMATURE GRAN PERCENT AUTO 0 % (0-1); LYMPHOCYTES ABSOLUTE AUTO 0.89 K/mm3 (0.84-5.20); LYMPHOCYTES PERCENT AUTO 14 % (21-46); MONOCYTES ABSOLUTE AUTO 0.39 K/mm3 (0.16-1.47); MONOCYTES PERCENT AUTO 6 % (4-13); Mean Corpuscular HGB Conc 33.3 g/dL (31.5-36.5); Mean Corpuscular Volume 101 fL (80-100); NEUTROPHILS ABSOLUTE AUTO 4.91 K/mm3 (1.96-9.15); NEUTROPHILS PERCENT AUTO 78 % (41-73); NRBC ABSOLUTE 0.00 K/mm3 (0.00-0.02); NRBC Auto 0.0 /100 WBC (0.0-0.2); Platelet Count 243 K/mm3 (150-400); RDW Coefficient Variation 11.7 % (11.7-14.2); RDW Standard Deviation 42.9 fL (35.1-46.3)
[2025-08-27 13:39] LABS: Alanine Aminotransfer (ALT/SGP 42 U/L (12-78); Albumin, Blood 3.9 g/dL (3.4-5.0); Albumin/Globulin Ratio 1.3 (0.8-1.8); Anion Gap 4 mmol/L (3-11); Aspartate Aminotrans (AST/SGOT 27 U/L (12-37); Bilirubin, Total 0.3 mg/dL (0.1-1.0); Blood Urea Nitrogen 27 mg/dL (8-24); CO2, Blood 34 mmol/L (21-32); Calcium, Blood 9.5 mg/dL (8.5-10.1); Chloride, Blood 105 mmol/L (98-108); Creatinine, Blood 0.55 mg/dL (0.40-1.00); Ethanol (Alcohol), Blood, Med <3 mg/dL; Globulin, Blood 3.1 g/dL (2.2-4.0); Glucose, Blood 122 mg/dL (70-99); Potassium, Blood 3.6 mmol/L (3.5-5.5); Sodium, Blood 139 mmol/L (136-145); Total Protein, Blood 7.0 g/dL (6.4-8.2)
[2025-08-27] MEDS ORDERED: Ketorolac Tromethamine 30mg Vial IV ONE (14:10)
[2025-08-27] MEDS ORDERED: Ondansetron HCl 2 MG / ML 2ML Vial IV ONE (14:10)
[2025-08-27] MEDS ORDERED: NS 500 ML IV SCH (14:10)
[2025-08-27 14:34] LABS: pH Blood Venous 7.36 (7.34-7.37)
[2025-08-27 15:14] LABS: Influenza A, PCR NEGATIVE (NEGATIVE); Influenza B, PCR NEGATIVE (NEGATIVE); Resp Syncytial Virus, PCR NEGATIVE (NEGATIVE); SARS-Cov-2 (COVID-19) PCR, MMC NEGATIVE (NEGATIVE)
[2025-08-27] MEDS ORDERED: Metoclopramide HCl 5MG / ML 2ML Vial IV ONE (16:10)
[2025-08-27] MEDS ORDERED: HYDROmorphone HCl/Pf 1MG SYR IV ONE (16:10)
[2025-08-27] MEDS ORDERED: NS 1,000 ML IV SCH ×2 (16:20→17:20)
[2025-08-27] MEDS ORDERED: FLU VACC TS2025(65UP)/MF59C/PF 45 MCG/0.5 ML SYRINGE IM SCH (17:15)
[2025-08-27] MEDS ORDERED: FentaNYL Citrate 50 MCG/ML 2 ML Injection IV PRN (17:15)
[2025-08-27] MEDS ORDERED: Ipratropium/Albuterol SulF 2.5-0.5MG/3 ML Amp INH PRN (17:15)
[2025-08-27] MEDS ORDERED: Ondansetron HCl 2 MG / ML 2ML Vial IV PRN (17:20)
--- NOTE | 2025-08-27 19:37 | NUR ---
TOOK REPORT FROM ED JUAN MIGUEL CHUA @ [id number]
[2025-08-27 20:08] VITALS: BP 116/81
[2025-08-27] MEDS ORDERED: Acetaminophen 500MG/DP-Hydram 25MG HCL 1 Tab PO SCH (22:35)
[2025-08-27 23:35] VITALS: BP 102/58
[2025-08-28 03:34] VITALS: BP 103/59
[2025-08-28 04:32] LABS: BASOPHILS ABSOLUTE AUTO 0.05 K/mm3 (0.00-0.23); BASOPHILS PERCENT AUTO 1 % (0-2); EOSINOPHILS ABSOLUTE AUTO 0.14 K/mm3 (0.00-0.68); EOSINOPHILS PERCENT AUTO 2 % (0-6); Hematocrit 36.1 % (33.0-51.0); Hemoglobin 11.8 g/dL (11.5-16.0); IMMATURE GRAN ABSOLUTE AUTO 0.01 K/mm3 (0.00-0.10); IMMATURE GRAN PERCENT AUTO 0 % (0-1); LYMPHOCYTES ABSOLUTE AUTO 1.01 K/mm3 (0.84-5.20); LYMPHOCYTES PERCENT AUTO 15 % (21-46); MONOCYTES ABSOLUTE AUTO 0.57 K/mm3 (0.16-1.47); MONOCYTES PERCENT AUTO 9 % (4-13); Mean Corpuscular HGB Conc 32.7 g/dL (31.5-36.5); Mean Corpuscular Volume 100 fL (80-100); NEUTROPHILS ABSOLUTE AUTO 4.92 K/mm3 (1.96-9.15); NEUTROPHILS PERCENT AUTO 74 % (41-73); NRBC ABSOLUTE 0.00 K/mm3 (0.00-0.02); NRBC Auto 0.0 /100 WBC (0.0-0.2); Platelet Count 187 K/mm3 (150-400); RDW Coefficient Variation 11.6 % (11.7-14.2); RDW Standard Deviation 42.4 fL (35.1-46.3)
[2025-08-28 04:52] LABS: Alanine Aminotransfer (ALT/SGP 33.0 U/L (12-78); Albumin, Blood 3.2 g/dL (3.4-5.0); Albumin/Globulin Ratio 1.2 (0.8-1.8); Anion Gap 7.0 mmol/L (3-11); Aspartate Aminotrans (AST/SGOT 26.0 U/L (12-37); Bilirubin, Total 0.3 mg/dL (0.1-1.0); Blood Urea Nitrogen 27.0 mg/dL (8-24); CO2, Blood 28.0 mmol/L (21-32); Calcium, Blood 8.7 mg/dL (8.5-10.1); Chloride, Blood 111.0 mmol/L (98-108); Creatinine, Blood 0.53 mg/dL (0.40-1.00); Globulin, Blood 2.7 g/dL (2.2-4.0); Glucose, Blood 101.0 mg/dL (70-99); Potassium, Blood 3.6 mmol/L (3.5-5.5); Sodium, Blood 142.0 mmol/L (136-145); Total Protein, Blood 5.9 g/dL (6.4-8.2)
--- NOTE | 2025-08-28 05:26 | NUR ---
SHIFT SUMMARY NOC PT A/O X 2-3. VERY IRRITABLE AND CONFUSED AT TIMES. PT UNABLE TO REPORT MEDICATIONS TAKEN AT HOME. PHARMACY IS [facility] WHICH WAS CLOSED BY THE TIME PT ADMITTED TO UNIT. PT HAS FENTANYL PATCH ON R UPPER OUTER THIGH COVERED WITH OPSITE. PT ON TELE SINUS RHYTHM IN 70'S. PT WAS ABLE TO AMBULATE TO BSC WITH 1PA AND VOIDED A MODERATE AMOUNT. PT HAS IVF INFUSING @ 75 ML/HR X 1L. PT CURRENTLY RESTING WITH BED ALARM ON, BED LOCKED IN LOWEST POSITION, AND CALL LIGHT WITHIN REACH.
[2025-08-28 06:52] LABS: Source, Urine Straight Cath
[2025-08-28 06:59] LABS: Bilirubin, Urine Neg (Neg); Color, Urine Yellow (P-Yellow); Glucose Qualitative, Urine Neg (Neg); Ketones, Urine 2+ (Neg); Leukocyte Esterase, Urine 2+ (Neg); Protein, Urine 1+ (Neg); Specific Gravity, Urine 1.025 (1.003-1.022); Urobilinogen, Urine NORM (Normal)
[2025-08-28 07:18] VITALS: BP 117/71
[2025-08-28 07:25] LABS: Red Blood Cells, Urine 0-2 /hpf (0-2)
[2025-08-28 07:26] LABS: Yeast/Fungi Urine Few /hpf
[2025-08-28 07:29] LABS: U Amphetamine Screen Not Detected; U Barbiturate Screen Not Detected; U Benzodiazapine Screen Not Detected; U Buprenorphine Screen Not Detected; U Cannabinoids Screen Not Detected; U Cocaine Screen Not Detected; U Methadone Screen Not Detected; U Methamphetamine Screen Not Detected; U Opiates Screen DETECTED; U Oxycodone Screen Not Detected; U Phencyclidine Screen Not Detected
--- NOTE | 2025-08-28 08:21 | NUR ---
PALLIATIVE CARE NOTE: CONSULT RECEIVED FOR ADVANCED CARE PLANNING AND SYMPTOM MANAGEMENT. REVEIWED MEDICAL RECORD AND [facility]. NO POLST OR AD FOUND ON FILE. PT NOTED TO BE AWAKE BUT CONFUSED.
[2025-08-28] MEDS ORDERED: NS 1,000 ML IV SCH (09:45)
[2025-08-28] MEDS ORDERED: CefTRIAXone Sodium 1,000 MG in NS 100 ML IV SCH (10:00)
[2025-08-28 10:23] LABS: Thyroid Stimulating Hormone 0.821 uIU/mL (0.360-4.800)
[2025-08-28 11:01] VITALS: BP 117/76
[2025-08-28] MEDS ORDERED: Ketorolac Tromethamine 30mg Vial IV PRN ×2 (11:25→11:55)
[2025-08-28] MEDS ORDERED: Budesonide 1 MG/2 ML RESP INH SCH (13:00)
--- NOTE | 2025-08-28 14:28 | NUR ---
PALLIATIVE CARE VISIT: MET WITH PT AND SON JENN AT 1230 TO DISCUSS GOC, SYMPTOM MANAGEMENT, AND AD/POLST. PT AGREEABLE TO VISIT WITH JENN PRESENT. SHE IS ABLE TO COMMUNICATE HER NEEDS AT THIS TIME. ACCORDING TO JENN PT LIVES WITH HIM IN HIS 2 STORY HOUSE. PT IS FOLLOWED BY ZAHRA COCHRAN PALLIATIVE SPECIAL FORCES ENGINEER SERGEANT [facility]. POLST/AD: PT STATES SHE COMPLETED A POLST WITH PROVIDER BUT NEVER GOT A COPY. SHE IS AGREEABLE TO COMPLETING A NEW POLST AND HAVE IT SENT TO [facility]. PT STATES, AND SON AGREES PT WANTS TO BE A DNR/SELECTIVE TREATMENT. STATES "NO COMPRESSIONS AND NO INTUBATION." POLST COMPLETED AND SIGNED BY PATIENT. SYMPTOMS: PT STATES SHE HAS PAIN IN HER NECK. IT WAS A 10/10 THEN SHE GOT TORADOL. AT BEGINNING OF VISIT SHE DESCRIBED HER PAIN 9/10. AT END OF VISIT WHICH WAS APPROX. 1 HOUR LONG WAS A 7/10. PROVIDED NECK PILLOW TO ADDRESS COMFORT. PT STATED IT HELPED. PT STATES SHE RECENTLY HAD INCREASE IN FENTANYL PATCH TO 25 MCG. PC PROVIDER OUTPATIENT HAS BEEN WORKING WITH HER ON PAIN MANAGEMENT. PT HAS TRIED SEVERAL MEDICATIONS INCLUDING VICODIN, PERCOCET, DILAUDID AND MORPHINE ER TABS. MORPHINE, PERCOCET, VICODIN REPORTEDLY NOT EFFECTIVE IN MANAGING BREAKTHROUGH PAIN WHICH IS WHY FENTANYL PATCH WAS STARTED AND NOW THEY ARE IN PROCESS OF TITRATING. SON STATES THEY HAVE HOME VISIT SCHEDULED FRIDAY WITH ZAHRA THEY ARE HOPING THEY CAN KEEP. PT C/O INTERMITTENT DIARRHEA AND CONSTIPATION. SON REPORTS SHE DOES NOT HAVE GALL BLADDER AND THINKS THIS MIGHT BE WHY SHE HAS DIARRHEA. PT IS WILL ING TO TAKE MEDICATION TO AID IN THESE SYMPTOMS. WE DISCUSS CAUSE OF CONSTIPATION LIKELY FROM PAIN MEDICATIONS. SHE TAKES OTC DOCUSATE WHEN SHE HAS CONSTIPATION. SOB: PT STATES SHE STILL SMOKES. SHE DOES NOT WEAR HER OXYGEN WHEN SHE GOES OUTSIDE TO SMOKE. SON STATES THEY HAVE NICOTINE PATCHES AND HE HAS BEEN ENCOURAGING HIS MOM TO USE BUT SHE HAS BEEN RESISTANT. EDUCATED ON DANGERS OF SMOKING WITH OXYGEN ANYHOW AND ENCOURAGED PT TO QUIT SMOKING. PT WOULD BE AGREEABLE TO TAKING MEDICATION FOR HER SOB. PT WOULD LIKE TO TAKE SOMETHING FOR SLEEP. SHE NORMALLY TAKES MEDICATION FOR THIS AND HAS NOT BEEN TAKING SINCE ADMISSION. DISCUSSED CONCERNS OF DECREASED MENTATION REASON MEDICATIONS HELD. WOULD DISCUSS WITH MD. HOME MED REC IS NOT COMPLETED SO PLACED ORDER FOR COMPLETION. PT STATES SHE HAS DECREASED APPETITE. SHE HAS HARD TIME EATING WITHOUT HER DENTURES BUT DOES NOT WANT TO WEAR THEM HERE. SHE REPORTS PRIMARY RN ALREADY CHANGED DIET TO SOFT BITE SIZE TO ACCOMODATE CHEWING DIFFICULTIES. SHE IS AGREEABLE TO [facility] ENSURES. BROUGHT ONE FOR HER SINCE SHE REPORTED SHE DID NOT EAT LUNCH WELL. WILL REQUEST ENSURES WITH MEALS. CALLED DR. SANCHEZ AND UPDATED HER WITH ABOVE INFORMATION. ORDERS RECEIVED FOR DNR, COMPLETE MED REC AND ENSURES WITH MEALS. ORDERS PLACED.
[2025-08-28 15:30] VITALS: BP 135/76
[2025-08-28] MEDS ORDERED: OxyCODONE 10/Acetamin 325 TABLET PO PRN (15:50)
--- NOTE | 2025-08-28 17:19 | NUR ---
SHIFT SUMMARY; PT A/OX3-4 AND HAS ANXIOUS AFFECT. SON AT BEDSIDE THIS AM. PT TREATED FOR BACK PAIN PER EMAR. PT REPORTS, THAT MEDS ARE NOT EFFECTIVE. ALTERNATIVE METHODS STARTED, MUSIC THERAPY AND COLD THERAPY. THIS APPEARS TO BE EFFECTIVE FOR PT. RESIDENT AND SUPERVISING AT [facility] THIS MORNING. BED IN LOW POSITION AND CALL LIGHT WITHIN REACH.
--- NOTE | 2025-08-28 17:40 | NUR ---
THIS SATELLITE INSTALLER HAS REVIEWED AND AGREES WITH ALL NOTES AND ASSESSMENTS BY JUAN MIGUEL BAH.
[2025-08-28 20:12] VITALS: BP 126/78
[2025-08-29] VITALS (7 sets, daily range): BP systolic 122–157; BP diastolic 76–87
--- NOTE | 2025-08-29 04:59 | NUR ---
POSTAL SUPERVISOR REVIEW: MOST RECENT RHYTHM STRIP IN CHART REVIEWED AND INTERPRETED SINUS c FHB @ 98bpm BY THIS RN.
--- NOTE | 2025-08-29 05:25 | NUR ---
SHIFT SUMMARY NO ACUTE EVENTS DURING THIS SHIFT. MEDICATED FOR BACK AND NECK PAIN. TELE:SR @88 WITH 1ST DEGREE HBL. 1L VIA NASAL CANNULA.BED AT THE LOWEST POSITION, CALL LIGHT CINTHIA ALCOCER. PT IS A/O X3/4, ABLE TO MAKE HER NEEDS KNOWN AND COOPERATIVE WITH CARE.
[2025-08-29 08:49] LABS: BASOPHILS ABSOLUTE AUTO 0.04 K/mm3 (0.00-0.23); BASOPHILS PERCENT AUTO 1 % (0-2); EOSINOPHILS ABSOLUTE AUTO 0.12 K/mm3 (0.00-0.68); EOSINOPHILS PERCENT AUTO 2 % (0-6); Hematocrit 37.6 % (33.0-51.0); Hemoglobin 12.1 g/dL (11.5-16.0); IMMATURE GRAN ABSOLUTE AUTO 0.03 K/mm3 (0.00-0.10); IMMATURE GRAN PERCENT AUTO 1 % (0-1); LYMPHOCYTES ABSOLUTE AUTO 0.95 K/mm3 (0.84-5.20); LYMPHOCYTES PERCENT AUTO 14 % (21-46); MONOCYTES ABSOLUTE AUTO 0.64 K/mm3 (0.16-1.47); MONOCYTES PERCENT AUTO 10 % (4-13); Mean Corpuscular HGB Conc 32.2 g/dL (31.5-36.5); Mean Corpuscular Volume 101 fL (80-100); NEUTROPHILS ABSOLUTE AUTO 4.88 K/mm3 (1.96-9.15); NEUTROPHILS PERCENT AUTO 73 % (41-73); NRBC ABSOLUTE 0.00 K/mm3 (0.00-0.02); NRBC Auto 0.0 /100 WBC (0.0-0.2); Platelet Count 185 K/mm3 (150-400); RDW Coefficient Variation 11.7 % (11.7-14.2); RDW Standard Deviation 43.4 fL (35.1-46.3)
[2025-08-29 09:46] LABS: Anion Gap 5.0 mmol/L (3-11); Blood Urea Nitrogen 25.0 mg/dL (8-24); CO2, Blood 31.0 mmol/L (21-32); Calcium, Blood 8.7 mg/dL (8.5-10.1); Chloride, Blood 109.0 mmol/L (98-108); Creatinine, Blood 0.46 mg/dL (0.40-1.00); Glucose, Blood 100.0 mg/dL (70-99); Potassium, Blood 3.5 mmol/L (3.5-5.5); Sodium, Blood 141.0 mmol/L (136-145)
[2025-08-29] MEDS ORDERED: AMBIEN10 MG PO (13:46)
[2025-08-29] MEDS ORDERED: FENTANYL1 EA10 TOP (13:48)
[2025-08-29] MEDS ORDERED: Nicoderm Cq1 EACH TOP (13:51)
[2025-08-29] MEDS ORDERED: GABA100 PO (13:51)
--- NOTE | 2025-08-29 17:04 | NUR ---
SHIFT SUMMARY PATIENT ALERT AND ORIENTED X4. PLEASANT AND COOPERATIVE DURING CARE. COMPLAINED OF PAIN MEDICATION ADMINISTERED PER EMAR. PATIENT MAKE NEEDS KNOWN. NO ACUTE CHANGE DURING THIS SHIFT. VITAL SIGNS STABLE. PATIENT ON 2L/NC, STAND BY ASSIST D/T WEAKNESS, LINES AND CORDS. BED LOCKED AND IN LOWEST POSITION. CALL LIGHT WITHIN REACH.
--- NOTE | 2025-08-29 17:20 | NUR ---
THIS DIRECTOR ADVERTISING HAS REVIEWED AND AGREES WITH ALL NOTES AND ASSESSMENTS BY JUAN MIGUEL HENDRICKS.
--- NOTE | 2025-08-29 18:16 | NUR ---
PALLIATIVE CARE NOTE: SPOKE TO SON JENN ON THE PHONE THIS EVENING. DISCUSSED HOSPICE SERVICE AND BENEFITS. JENN IS AGREEABLE TO HIS MOM COMING [facility] BUT HE DOES NOT WANT TO DISCUSS WITH HER UNTIL HE IS CERTAIN SHE QUALIFIES AND WILL BE ACCEPTED TO HOSPICE SERVICES. DISCUSSED CHOICES OF HOSPICE AGENCIES IN AREA AND HE CHOSE [facility]. SENT REFERRAL TO [facility]. JENN STATES HE WILL BE IN TOMORROW AROUND NOON AND WILL DISCUSS WITH HIS MOM IF BECKY AGREES TO ADMISSION.
--- NOTE | 2025-08-30 02:38 | NUR ---
PT STILL ON 2-3L NC, ABLE TO STAND AND PIVOT TO BSC. PT OCCASSIONALLY ANXIOUS. NO ACUTE CHANGES, CARE TRANSFERRED TO DUNIA ESCAMILLA @[id number]
[2025-08-30] MEDS ORDERED: OxyCODONE 10/Acetamin 325 TABLET PO PRN (03:25)
[2025-08-30] MEDS ORDERED: OxyCODONE 10/Acetamin 325 TABLET PO ONE (03:25)
[2025-08-30 04:38] VITALS: BP 145/87
--- NOTE | 2025-08-30 05:52 | NUR ---
SUMMARY NOC SHIFT PT IS ALERT AND ORIENTED TIMES 4. PT ADMITTED FOR ACUTE ENCEPHALOPATHY.. PT IS STAND AND PIVOT TO BEDSIDE COMMODE WITH SOFT BITE SIZE DIET. PT IS ON TELE SINUS RHYTHM 74 WITH 1ST DEGREE BLOCK. PT HAS ANXIETY ISSUES. PT IS COOPERATIVE WITH CARE AND ABLE TO MAKE NEEDS KNOWN. PT IS 2-3 L O2. PT BED IS AT LOW POSITION, RAILS TIMES TWO, AND CALL LIGHT WITHIN REACH.
[2025-08-30 08:18] VITALS: BP 138/83
[2025-08-30] MEDS ORDERED: NS 250 ML IV PRN (08:55)
[2025-08-30] MEDS ORDERED: FENTANYL1 EAC9 TOP (10:41)
[2025-08-30] MEDS ORDERED: NICO21TP TOP (10:42)
[2025-08-30] MEDS ORDERED: Seroquel Xr50 MG PO (10:43)
[2025-08-30] MEDS ORDERED: ELIQUIS5 M2 PO (10:44)
[2025-08-30] MEDS ORDERED: Cyclobenzaprine5 MG PO (10:44)
[2025-08-30] MEDS ORDERED: BACLOFEN5 M1 PO (10:45)
[2025-08-30] MEDS ORDERED: MONT10T PO (10:49)
[2025-08-30] MEDS ORDERED: MIRT30 PO (10:50)
--- NOTE | 2025-08-30 13:20 | NUR ---
CONFIRMATION OF GOALS WITH PT AND SON. PT IS AGREEABLE TO HOSPICE ADMISSION WITH [facility] TOMORROW. PAIN IS 8/10 (WHOLE SPINE, NECK, BILAT HIPS AND PEVIC REGION. RCV'D VERBAL ORDER FROM PROVIDER TO ADD ON PO DILAUDID AND DEXAMETHAZONE. SPOKE WITH NICK CLINICAL COORDINATOR AT [facility]. NICK REPORTS BOTH MEDICATIONS WILL BE COVERED UNDER HOSPICE. IF NEW RX REGIMENT IS NOT EFFECTIVE IN REACHING GOAL OF 4/10 PAIN THEY WILL EVALUATE POSSIBLY OF CHANGING RX TO [facility]. [facility] IN ROOM TO CONFIRM ADMISSION FOR TOMORROW AND EQUIPMENT NEEDS. UPDATES PROVIDED TO BEDSIDE RN AND CM. PC TO REMAIN AVAILABLE NEEDED.
[2025-08-30] MEDS ORDERED: DECADRON4 M1 PO (14:20)
[2025-08-30] MEDS ORDERED: CEFD300 PO (14:20)
[2025-08-30] MEDS ORDERED: TYLENOL PM PO (14:22)
[2025-08-30] MEDS ORDERED: HYDMOR2 PO (14:22)
[2025-08-30] MEDS ORDERED: IPRAT-ALBUT 0.5-3 ML INH (14:22)
--- NOTE | 2025-08-30 16:30 | NUR ---
DISCHARGE NOTE 1530: DISCHARGE PATIENT TO HOME WITH HOSPICE. PRINTED AND REVIEWED DISCHARGE INSTRUCTIONS WITH PATIENT AND SON, VERBALIZED UNDERSTANDING. GAVE PATIENT'S SON HARD COPY OF PRESCRIPTION AND FAXED TO [facility]. D/C'D IV. PATIENT TOLARATING PO AND VOIDING. BELONGINGS RETURNED TO PATIENT. VSS. PATIENT TRANSPORTED OUT OF THE ROOM VIA WHEELCHAIR BY THIS RN.
== END 2025-08-30 15:21 | disposition home or self-care (01) | DRG 689 ==
LOC: ER 12:29 → MEDS 12:30 → ER 12:30 → MEDS 12:30
PROVIDERS: Student in an Organized Health Care Education/Training Program; ADMIT Internal Medicine
DX: N39.0 Urinary tract infection, site not specified (principal); G93.41 Metabolic encephalopathy; F03.94 Unspecified dementia, unspecified severity, with anxiety; J96.11 Chronic respiratory failure with hypoxia; F11.20 Opioid dependence, uncomplicated; E44.0 Moderate protein-calorie malnutrition; Z68.1 Body mass index [BMI] 19.9 or less, adult; K21.9 Gastro-esophageal reflux disease without esophagitis; G47.00 Insomnia, unspecified; M81.0 Age-related osteoporosis without current pathological fracture; Z66 Do not resuscitate; J44.9 Chronic obstructive pulmonary disease, unspecified; E78.5 Hyperlipidemia, unspecified; G89.29 Other chronic pain; M54.2 Cervicalgia; M54.6 Pain in thoracic spine; R51.9 Headache, unspecified; Z99.81 Dependence on supplemental oxygen; E86.0 Dehydration; B95.2 Enterococcus as the cause of diseases classified elsewhere; R53.1 Weakness; I44.0 Atrioventricular block, first degree; G40.909 Epilepsy, unspecified, not intractable, without status epilepticus; N81.9 Female genital prolapse, unspecified; Z23 Encounter for immunization; Z88.0 Allergy status to penicillin; Z91.048 Other nonmedicinal substance allergy status; Z90.49 Acquired absence of other specified parts of digestive tract; Z86.73 Personal history of transient ischemic attack (TIA), and cerebral infarction without residual deficits; Z90.89 Acquired absence of other organs; Z79.899 Other long term (current) drug therapy; Z79.51 Long term (current) use of inhaled steroids; Z79.01 Long term (current) use of anticoagulants
CPT/HCPCS: 36415; 51798; 70450; 71045; 72125; 80048; 80053; 80320; 81001; 82140; 82550; 82803; 83735; 83880; 84100; 84439; 84443; 84484; 85025; 87077; 87086; 87186; 87637; 93005; 93010; 94640; 94664; 94760; 96365; 96374; 96375; 96376; 99285-25; A9270; G0378; J0696; J1171; J1885; J2405; J2765; J3010; J7030; J7626